=== PATIENT | female | born 1970 | race African-American/Black ===

== ENCOUNTER 2016-07-20 17:27 | Emergency (ER) | payer OTHER ==
[~2016-07-20] VITALS: Ht 170.2 cm; Wt 79.8 kg
[~2016-07-20 17:27] MED LIST: ALBUTEROL SULF8.5 GM INH; ASPIRIN EC81 MG ORAL; AZITHROMYCIN250 MG ORAL; GABAPENTIN300 MG ORAL; HYDROCHLOROTHIA25 MG ORAL; IBUPROFEN600 MG ORAL; LISINOPRIL10 MG ORAL; NORCO 5-325 TA1 EACH ORAL; NORCO1 EA ORAL; NORVASC10 MG ORAL; POLYTRIM OP SOL10 ML RIGHT EYE; SOMA350 MG PO; gabapentin
[2016-07-20 18:15] LABS: KETONES,URINE 1+ (NEGATIVE); LEUKOCYTE ESTERASE ,URINE 3+ (NEGATIVE); NITRITE,URINE POSITIVE (NEGATIVE); PH,URINE 5 (4.5-8.0); PROTEIN,URINE 3+ (NEGATIVE); UROBILINOGEN,URINE 1 MG/DL (0.0-1.0)
[2016-07-20 18:21] LABS: APPEARANCE,URINE SLIGHTLY CLOUDY
[2016-07-20 18:55] LABS: AMORPHOUS SEDIMENT,UR FEW /LPF; BACTERIA,URINE MANY /HPF; CALCIUM OXALATE CRYSTALS,UR FEW /LPF; SQUAMOUS EPITHELIAL CELL,UR FEW /LPF (NONE/OCC); WBC,URINE 20-30 /HPF (0 - 2)
[2016-07-20] MEDS ORDERED: NITROFURANTOIN100 M2 ORAL (18:55)
[2016-07-20] MEDS ORDERED: PHENAZOPYRIDIN100 MG ORAL (18:55)
[2016-07-20 19:08] VITALS: BP 130/90
[2016-07-20 19:11] VITALS: BP 130/90
--- NOTE | 2016-07-20 22:18 | Emergency Room Report ---
History of Present Illness General Chief Complaint: Female Urogenital Problems Source: Patient Present Illness HPI The patient is a 45-year-old female with a history of perimenopause presenting for lower abdominal pain and dysuria for the past 2 weeks. Pain has been increasing. It is now described as a 10 out of 10 dull ache to the mid lower abdomen. It does not radiate. She denies any flank pain. She does describe dysuria and increased urinary frequency. She has had a UTI in the past and this feels the same. She denies any other symptoms including nausea, vomiting, fever, chills, vaginal discharge, diarrhea Allergies: Coded Allergies: PENICILLINS (Verified Allergy, Unknown, 01/01/14) Patient History Past Medical History: see triage record Pertinent Family History: none Last Menstrual Period: now Now: No Reviewed Nursing Documentation: PMH: Agreed, PSxH: Agreed Nursing Documentation-PMH Hx Cardiac Problems: Yes - [place] Hx Hypertension: Yes Hx Cerebrovascular Accident: Yes Review of Systems All Other Systems: negative except mentioned in HPI Physical Exam Vital Signs Date Time Temp Pulse Resp B/P Pulse Ox O2 Delivery O2 Flow Rate FiO2 07/20/16 17:30 98.6 98 18 143/103 98 Room Air Sp02 EP Interpretation: reviewed, normal General Appearance: no apparent distress, alert, GCS 15, non-toxic Head: normocephalic, atraumatic Eyes: bilateral eye PERRL, bilateral eye normal inspection ENT: hearing grossly normal, normal pharynx, no angioedema, normal voice Neck: full range of motion, supple/symm/no masses Gastrointestinal: normal bowel sounds, soft, non-distended, no guarding, no rebound, tenderness - suprapubic Genitourinary: normal inspection, no CVA tenderness Neurologic: alert, oriented x3, responsive, motor strength/tone normal, sensory intact, speech normal Psychiatric: judgement/insight normal, memory normal, mood/affect normal, no suicidal/homicidal ideation Skin: normal color, no rash, warm/dry, well hydrated Lymphatic: no adenopathy Medical Decision Making PA Attestation Dr. Merino is my supervising physician. Patient management was discussed with my supervising physician Diagnostic Impression: Primary Impression: Urinary tract infection Qualified Codes: N39.0 - Urinary tract infection, site not specified ER Course The patient is a 45-year-old female with a history of perimenopause presenting for lower abdominal pain and dysuria Differential diagnosis considered but not limited to: UTI, vaginitis, pyelonephritis, pyelonephrosis, Differential diagnosis considered but not limited to: UTI, BV, yeast infection, pyelonephritis, PID, PE: Vitals WNL. NAD. Abdomen: Normal appearance. Non distended. No ecchymosis. Normal BS. TTP over suprapubic region only. No McBurney point tenderness. No guarding. No CVA tenderness Urinalysis is consistent with urinary tract infection The patient discharged home with a prescription for Macrobid and is given ER precautions. Laboratory Tests Test 07/20/16 17:50 Urine Color Yellow Urine Appearance Slightly cloudy Urine pH 5 (4.5-8.0) Urine Specific [place] 1.020 (1.005-1.035) Urine Protein 3+ (NEGATIVE) H Urine Glucose (UA) Negative (NEGATIVE) Urine Ketones 1+ (NEGATIVE) H Urine Occult Blood 4+ (NEGATIVE) H Urine Nitrite Positive (NEGATIVE) H Urine Bilirubin Negative (NEGATIVE) Urine Urobilinogen 1 MG/DL (0.0-1.0) H Urine Leukocyte Esterase 3+ (NEGATIVE) H Urine RBC 10-15 /HPF (0 - 2) H Urine WBC 20-30 /HPF (0 - 2) H Urine Squamous Epithelial Cells Few /LPF (NONE/OCC) Urine Calcium Oxalate Crystals Few /LPF (NONE) Urine Amorphous Sediment Few /LPF (NONE) H Urine Bacteria Many /HPF (NONE) H Urine HCG, Qualitative Negative Lab Results Impression UA consistent with UTI. Preg neg Last Vital Signs Date Time Temp Pulse Resp B/P Pulse Ox O2 Delivery O2 Flow Rate FiO2 07/20/16 19:11 98.2 90 20 130/90 100 Room Air Status: improved Disposition: HOME, SELF-CARE Condition: Improved Scripts Nitrofurantoin Monohyd/M-Cryst* (MACROBID 100 MG*) 100 Mg Capsule 100 MG ORAL EVERY 12 HOURS, #14 CAP Prov: TERZIAN,KAELYN P.A. 07/20/16 Phenazopyridine Hcl* (PYRIDIUM*) 100 Mg Tablet 100 MG ORAL THREE TIMES A DAY, #6 TAB Prov: TERZIAN,KAELYN P.A. 07/20/16 Referrals: [facility]ERR[facility] (PCP) Patient Instructions: Urinary Tract Infection Additional Instructions: I discussed my findings with the patient. All questions and concerns have been answered. Treatment and medication compliance have been addressed. I advised the patient that they need to follow up with PMD in 3-5 days. Return to ED if symptoms worsen, new symptoms arise, or if needed for any reason. Patient verbalized understanding of discharge instructions. KAELYN COLON July 20, 2016 22:18
== END 2016-07-20 19:11 | disposition home or self-care (01) ==
LOC: EMR 18:02
DX: N39.0 Urinary tract infection, site not specified (principal); I25.2 Old myocardial infarction; I10 Essential (primary) hypertension; Z86.73 Personal history of transient ischemic attack (TIA), and cerebral infarction without residual deficits; Z88.0 Allergy status to penicillin
CPT/HCPCS: 81003; 81025; 87086; 87181; 99284

== ENCOUNTER 2016-09-03 18:58 | Emergency (ER) | payer OTHER ==
[~2016-09-03] VITALS: Ht 167.6 cm; Wt 77.1 kg
[~2016-09-03 18:58] MED LIST changes: +NITROFURANTOIN100 M2 ORAL; +PHENAZOPYRIDIN100 MG ORAL
[2016-09-03 19:10] VITALS: BP 154/98
[2016-09-03] MEDS ORDERED: traMADol 50mg tab ORAL ONE (19:30)
[2016-09-03] MEDS ORDERED: CEPHALEXIN500 MG ORAL (19:59)
[2016-09-03] MEDS ORDERED: TRAMADOL HCL50 MG ORAL (19:59)
[2016-09-03] MEDS ORDERED: BACTRIM DS TAB1 EAC1 ORAL (19:59)
[2016-09-03] MEDS ORDERED: IBUPROFEN600 MG ORAL (19:59)
[2016-09-03 20:09] VITALS: BP 154/98
[2016-09-03 20:12] LABS: APPEARANCE,URINE SLIGHTLY CLOUDY; KETONES,URINE NEGATIVE (NEGATIVE); LEUKOCYTE ESTERASE ,URINE 1+ (NEGATIVE); NITRITE,URINE NEGATIVE (NEGATIVE); PH,URINE 5 (4.5-8.0); PROTEIN,URINE 1+ (NEGATIVE); UROBILINOGEN,URINE 1 MG/DL (0.0-1.0)
[2016-09-03 20:18] LABS: SQUAMOUS EPITHELIAL CELL,UR MANY /LPF (NONE/OCC)
[2016-09-03 20:19] LABS: BACTERIA,URINE FEW /HPF; MUCUS,URINE MANY /LPF (NONE/OCC)
--- NOTE | 2016-09-03 21:45 | Emergency Room Report ---
History of Present Illness General Chief Complaint: Skin Rash/Abscess Present Illness HPI The patient is a 46-year-old female presenting with left ankle pain and possible infection. Patient states that she twisted the left ankle one week prior while walking. She noticed pain but was not evaluated. She has continued to walk on the foot and the swelling has increased as well as the pain. It is now described as an 8/10 dull ache and does not radiate from the ankle. Worse with touch and walking. The patient also noticed an insect bite of the right upper chest 2 days prior. She noticed increased redness and pain described as a 5/10 dull ache and does not radiate. Worse with touch. She denies other symptoms including fever, chills, nausea, vomiting, numbness, tingling Allergies: Coded Allergies: PENICILLINS (Verified Allergy, Unknown, 01/01/14) Patient History Past Medical History: see triage record Pertinent Family History: none Now: No Reviewed Nursing Documentation: PMH: Agreed, PSxH: Agreed Nursing Documentation-PMH Hx Cardiac Problems: Yes - [place] Hx Hypertension: Yes Hx Cerebrovascular Accident: Yes Review of Systems All Other Systems: negative except mentioned in HPI Physical Exam Vital Signs Date Time Temp Pulse Resp B/P Pulse Ox O2 Delivery O2 Flow Rate FiO2 09/03/16 19:00 98.8 94 20 154/98 98 Room Air Sp02 EP Interpretation: reviewed, normal General Appearance: no apparent distress, alert, GCS 15, non-toxic Head: normocephalic, atraumatic Eyes: bilateral eye PERRL, bilateral eye normal inspection ENT: hearing grossly normal, normal pharynx, no angioedema, normal voice Neck: full range of motion, supple/symm/no masses Musculoskeletal: back normal, normal range of motion, swelling, tender - TTP over the L lateral ankle with swelling Neurologic: alert, oriented x3, responsive, motor strength/tone normal, sensory intact, speech normal Psychiatric: judgement/insight normal, memory normal, mood/affect normal, no suicidal/homicidal ideation Skin: other - 3cm in diameter erythema to R upper lateral chest with central elevation. TTP. Hot to the touch. Lymphatic: no adenopathy Medical Decision Making PA Attestation Dr. Chambers is my supervising physician. Patient management was discussed with my supervising physician Diagnostic Impression: Primary Impression: Cellulitis Qualified Codes: L03.90 - Cellulitis, unspecified Additional Impression: Left ankle sprain Qualified Codes: S93.402A - Sprain of unspecified ligament of left ankle, initial encounter ER Course The patient is a 46-year-old female presenting with left ankle pain and possible infection. Ddx considered include but not limited to sprain/strain, fracture, contusion Ddx considered include but not limited to insect bite, contact dermatitis, eczema, cellulitis Physical exam: Afebrile. No apparent distress Left ankle: There is tenderness to palpation and edema over the left lateral malleolus. Limited active range of motion. Sensation intact to light touch. Cellulitis noted of the R upper lateral chest. X-ray of the left ankle is unremarkable Left ankle placed in TIANA wrap and the patient is provided crutches. ER precautions are given. Patient given prescription for pain medication and antibiotics and will follow up with primary care physician. Laboratory Tests Test 09/03/16 19:30 Urine Color Yellow Urine Appearance Slightly cloudy Urine pH 5 (4.5-8.0) Urine Specific [place] 1.025 (1.005-1.035) Urine Protein 1+ (NEGATIVE) H Urine Glucose (UA) Negative (NEGATIVE) Urine Ketones Negative (NEGATIVE) Urine Occult Blood Negative (NEGATIVE) Urine Nitrite Negative (NEGATIVE) Urine Bilirubin Negative (NEGATIVE) Urine Urobilinogen 1 MG/DL (0.0-1.0) H Urine Leukocyte Esterase 1+ (NEGATIVE) H Urine RBC 2-4 /HPF (0 - 2) H Urine WBC 5-10 /HPF (0 - 2) H Urine Squamous Epithelial Cells Many /LPF (NONE/OCC) H Urine Bacteria Few /HPF (NONE) Urine Mucus Many /LPF (NONE/OCC) H Lab Results Impression negative nitrite. WBC and bacteria noted but also many squamous cells Other X-Ray Diagnostic Results # of Views/Limited Vs Complete: 3 View Interpretation: no fractures, no dislocation, other - + STS Indication: Pain Impression: No acute disease Date Electronically Signed: Sep 03, 2016 Time Electronically Signed: 21:41 Interpreting ER Physician: Dr. Trish OLIVER Scribe Text I am acting as scribe for my supervising physician. My supervising physician's interpretation of the L ankle xrays are there are no fractures, dislocations or soft tissue swelling. Last Vital Signs Date Time Temp Pulse Resp B/P Pulse Ox O2 Delivery O2 Flow Rate FiO2 09/03/16 20:09 98.8 94 20 154/98 98 Room Air Status: improved Disposition: HOME, SELF-CARE Condition: Improved Scripts Trimethoprim/Sulfamethoxazole 160/800* (BACTRIM DS TABLET*) 1 Each Tablet 1 TAB ORAL TWICE A DAY, #14 TAB Prov: KAELYN COLON P.A. 09/03/16 Cephalexin* (KEFLEX*) 500 Mg Capsule 500 MG ORAL EVERY 6 HOURS, #28 CAP Prov: JESSICAZIANKAELYN P.A. 09/03/16 Tramadol Hcl* (ULTRAM*) 50 Mg Tablet 50 MG ORAL Q6H Y for For Pain, #8 TAB 0 Refills Prov: KAELYN COLON P.A. 09/03/16 Ibuprofen* (MOTRIN*) 600 Mg Tablet 600 MG ORAL Q8H Y for For Pain, #30 TAB 0 Refills Prov: KAELYN COLON P.A. 09/03/16 Patient Instructions: Cellulitis, Ankle Sprain Additional Instructions: I discussed my findings with the patient. All questions and concerns have been answered. Treatment and medication compliance have been addressed. I advised the patient that they need to follow up with PMD in 3-5 days. Return to ED if symptoms worsen, new symptoms arise, or if needed for any reason. Patient verbalized understanding of discharge instructions. KAELYN COLON Sep 03, 2016 21:45
--- NOTE | 2016-09-04 10:08 | Diagnostic Imaging Report ---
Indication: Left ankle pain Technique: XRAY ANKLE MIN 3VWS LEFT Comparison: None Findings: There is no acute fracture or dislocation. Prominent soft tissue swelling of the left ankle is noted. Bone mineralization is normal. Impression: No acute osseous abnormality. Prominent soft tissue swelling of the ankle and clinical correlation recommended.
== END 2016-09-03 20:09 | disposition home or self-care (01) ==
LOC: EMR 19:23
DX: L03.116 Cellulitis of left lower limb (principal); S93.402A Sprain of unspecified ligament of left ankle, initial encounter; X50.1XXA Overexertion from prolonged static or awkward postures, initial encounter; Y93.01 Activity, walking, marching and hiking; Y92.89 Other specified places as the place of occurrence of the external cause; I10 Essential (primary) hypertension; I25.2 Old myocardial infarction; Z86.73 Personal history of transient ischemic attack (TIA), and cerebral infarction without residual deficits; Z88.0 Allergy status to penicillin
CPT/HCPCS: 29540; 81003; 99284

== ENCOUNTER 2017-06-29 14:56 | Emergency (ER) | payer OTHER ==
[2017-06-29] VITALS (8 sets, daily range): BP systolic 142–163; BP diastolic 88–132
[~2017-06-29] VITALS: Ht 170.2 cm; Wt 72.6 kg
[~2017-06-29 14:56] MED LIST changes: +BACTRIM DS TAB1 EAC1 ORAL; +CEPHALEXIN500 MG ORAL; +TRAMADOL HCL50 MG ORAL
--- NOTE | 2017-06-29 15:24 | Emergency Room Report ---
History of Present Illness General Chief Complaint: General Complaint Source: Patient, Medical Record (Neo Mcpherson) Present Illness HPI 46 yo female patient presents to ER complaining of cough and PENA after doing drugs. Reports history of benzocaine and cocaine 3 days ago. Reports hx of using cocaine. Reports "they flooded the streets with benzocaine" 2 weeks ago and she has been using it since that time. Reports been sleeping off and on for the past 3 days, has not used drugs since that time, states " I think I'm going through withdrawals". Denies suicidal or homicidal ideation. Reports hx schizophrenia and bipolar disease; report takes Latuda and Trazodone for symptoms. Reports PENA and cough during this time. Reports phlegm in cough. Reports generalized PENA, denies loss of vision or vision changes. Reports generalized weakness. Denies fever, chest pain, SOB, abdominal pain. Reports hx of HTN, reports takes Norvasc; states did not take medication today. (Neo Mcpherson) Allergies: Coded Allergies: PENICILLINS (Verified Allergy, Unknown, 01/01/14) Patient History Past Medical History: see triage record Last Menstrual Period: 3 yrs ago Reviewed Nursing Documentation: PMH: Agreed; PSxH: Agreed (Neo Mcpherson) Nursing Documentation-PMH Past Medical History: No History, Except For Hx Cardiac Problems: Yes - [place] Hx Hypertension: Yes Hx Cerebrovascular Accident: Yes (Neo Mcpherson) Review of Systems All Other Systems: negative except mentioned in HPI (Neo Mcpherson) Physical Exam Vital Signs Date Time Temp Pulse Resp B/P (MAP) Pulse Ox O2 Delivery O2 Flow Rate FiO2 06/29/17 15:13 97.5 61 18 151/99 97 Room Air 97.5 Sp02 EP Interpretation: reviewed, normal General Appearance: well appearing, no apparent distress, alert, GCS 15, non- toxic Head: normocephalic, atraumatic Eyes: bilateral eye normal inspection, bilateral eye PERRL ENT: hearing grossly normal, normal pharynx, no angioedema, normal voice, uvula midline, moist mucus membranes Neck: full range of motion Respiratory: lungs clear, normal breath sounds, no rhonchi, no respiratory distress, no accessory muscle use, no wheezing, speaking full sentences Cardiovascular #1: regular rate, rhythm, no edema Gastrointestinal: non tender, soft, no mass, non-distended, no guarding, no rebound Musculoskeletal: normal inspection Neurologic: alert, oriented x3, responsive, motor strength/tone normal, sensory intact Psychiatric: mood/affect normal Skin: no rash Lymphatic: no adenopathy (Neo Mcpherson) Medical Decision Making PA Attestation Dr. Parish is my supervising Physician whom patient management has been discussed with. (Neo Mcpherson) Diagnostic Impression: Primary Impression: Generalized weakness Additional Impression: Abnormal EKG ER Course Pt. presents to the ED c/o cough and drug withdrawal. Ddx considered but are not limited to drug use, drug withdrawal, URI, viral syndrome, pneumonia, [place], PE, dissection. Concern for dissection due to hx of drug use. Vital signs: are WNL, pt. is afebrile Ordered labs and medication. CBC, CMP, Urine drug screen, Acetaminophen level, Salicylate level, serum alcohol, EKG, chest xray, Troponin, and medication. ER COURSE: Patient reports has not taken HTN medication today, will provide in ER. EKG shows T-wave inversions in II, III, avF, and V4-V6, concern for possible PE. Discuss with Dr. Parish, will order CTA to rule out PE. Order CTA chest and nitro. CBC and CMP unremarkable no elevation o WBC or LFTS Troponin negative Urine drug screen positive for cocaine and marijuana. CXR negative for acute disease, similar to xray from previous visit. No elevation in serum alcohol, acetaminophen, or salicylate. CTA chest shows no PE. Consult with Dr. Parish. Patient will be admitted for generalized weakness and abnormal EKG. Patient to be transferred to [facility] to Dr. Brooks. Labs Test 06/29/17 15:30 06/29/17 16:05 White Blood Count 5.6 K/UL (4.8-10.8) Red Blood Count 5.59 M/UL (4.20-5.40) Hemoglobin 16.2 G/DL (12.0-16.0) Hematocrit 48.5 % (37.0-47.0) Mean Corpuscular Volume 87 FL (80-99) Mean Corpuscular Hemoglobin 29.0 PG (27.0-31.0) Mean Corpuscular Hemoglobin Concent 33.5 G/DL (32.0-36.0) Red Cell Distribution Width 12.6 % (11.6-14.8) Platelet Count 348 K/UL (150-450) Mean Platelet Volume 6.1 FL (6.5-10.1) Neutrophils (%) (Auto) 60.2 % (45.0-75.0) Lymphocytes (%) (Auto) 29.4 % (20.0-45.0) Monocytes (%) (Auto) 6.7 % (1.0-10.0) Eosinophils (%) (Auto) 2.6 % (0.0-3.0) Basophils (%) (Auto) 1.2 % (0.0-2.0) Sodium Level 139 MMOL/L (136-145) Potassium Level 4.5 MMOL/L (3.5-5.1) Chloride Level 105 MMOL/L (98-107) Carbon Dioxide Level 27 MMOL/L (21-32) Anion Gap 8 mmol/L (5-15) Blood Urea Nitrogen 18 mg/dL (7-18) Creatinine 1.2 MG/DL (0.55-1.30) Estimat Glomerular Filtration Rate 58.1 mL/min (>60) Glucose Level 102 MG/DL (74-106) Calcium Level 9.6 MG/DL (8.5-10.1) Total Bilirubin 0.4 MG/DL (0.2-1.0) Aspartate Amino Transf (AST/SGOT) 15 U/L (15-37) Alanine Aminotransferase (ALT/SGPT) 17 U/L (12-78) Alkaline Phosphatase 81 U/L (46-116) Troponin I 0.000 ng/mL (0.000-0.056) Total Protein 7.9 G/DL (6.4-8.2) Albumin 3.8 G/DL (3.4-5.0) Globulin 4.1 g/dL Albumin/Globulin Ratio 0.9 (1.0-2.7) Salicylates Level 1.1 ug/mL (2.8-20) Acetaminophen Level < 2 MCG/ML (10-30) Serum Alcohol < 3 mg/dL Urine Opiates Screen Negative (NEGATIVE) Urine Barbiturates Screen Negative (NEGATIVE) Phencyclidine (PCP) Screen Negative (NEGATIVE) Urine Amphetamines Screen Negative (NEGATIVE) Urine Benzodiazepines Screen Negative (NEGATIVE) Urine Cocaine Screen Positive (NEGATIVE) Urine Marijuana (THC) Screen Positive (NEGATIVE) (Neo Mcpherson) ER Course The patient was discussed with Dr. Brooks who agreed to accept the patient for transfer for continuity of care due to capitated physician. The patient was given aspirin in the emergency department. CTA of the chest read by radiology showed no evidence of dissection or pulmonary embolism. Initial troponin was negative Labs Test 06/29/17 15:30 06/29/17 16:05 White Blood Count 5.6 K/UL (4.8-10.8) Red Blood Count 5.59 M/UL (4.20-5.40) Hemoglobin 16.2 G/DL (12.0-16.0) Hematocrit 48.5 % (37.0-47.0) Mean Corpuscular Volume 87 FL (80-99) Mean Corpuscular Hemoglobin 29.0 PG (27.0-31.0) Mean Corpuscular Hemoglobin Concent 33.5 G/DL (32.0-36.0) Red Cell Distribution Width 12.6 % (11.6-14.8) Platelet Count 348 K/UL (150-450) Mean Platelet Volume 6.1 FL (6.5-10.1) Neutrophils (%) (Auto) 60.2 % (45.0-75.0) Lymphocytes (%) (Auto) 29.4 % (20.0-45.0) Monocytes (%) (Auto) 6.7 % (1.0-10.0) Eosinophils (%) (Auto) 2.6 % (0.0-3.0) Basophils (%) (Auto) 1.2 % (0.0-2.0) Sodium Level 139 MMOL/L (136-145) Potassium Level 4.5 MMOL/L (3.5-5.1) Chloride Level 105 MMOL/L (98-107) Carbon Dioxide Level 27 MMOL/L (21-32) Anion Gap 8 mmol/L (5-15) Blood Urea Nitrogen 18 mg/dL (7-18) Creatinine 1.2 MG/DL (0.55-1.30) Estimat Glomerular Filtration Rate 58.1 mL/min (>60) Glucose Level 102 MG/DL (74-106) Calcium Level 9.6 MG/DL (8.5-10.1) Total Bilirubin 0.4 MG/DL (0.2-1.0) Aspartate Amino Transf (AST/SGOT) 15 U/L (15-37) Alanine Aminotransferase (ALT/SGPT) 17 U/L (12-78) Alkaline Phosphatase 81 U/L (46-116) Troponin I 0.000 ng/mL (0.000-0.056) Total Protein 7.9 G/DL (6.4-8.2) Albumin 3.8 G/DL (3.4-5.0) Globulin 4.1 g/dL Albumin/Globulin Ratio 0.9 (1.0-2.7) Salicylates Level 1.1 ug/mL (2.8-20) Acetaminophen Level < 2 MCG/ML (10-30) Serum Alcohol < 3 mg/dL Urine Opiates Screen Negative (NEGATIVE) Urine Barbiturates Screen Negative (NEGATIVE) Phencyclidine (PCP) Screen Negative (NEGATIVE) Urine Amphetamines Screen Negative (NEGATIVE) Urine Benzodiazepines Screen Negative (NEGATIVE) Urine Cocaine Screen Positive (NEGATIVE) Urine Marijuana (THC) Screen Positive (NEGATIVE) (Sinan Parish) EKG Diagnostic Results Rate: bradycardiac Rhythm: NSR ST Segments: no acute changes Other Impression short OH T-wave abnormality, consider lateral ischemia T wave inversions in leads II, III, aVF, and V4-V6 abnormal EKG (Neo Mcpherson P.A.) Rhythm Strip Diag. Results EP Interpretation: yes Rate: 49 Rhythm: NSR, no PVC's, no ectopy PA Scribe Text Darius Mcpherson PA-C (Neo Mcpherson P.A.) Chest X-Ray Diagnostic Results Chest X-Ray Diagnostic Results : Chest X-Ray Ordered: Yes # of Views/Limited/Complete: 1 View Indication: Chest Pain EP Interpretation: Yes PA Xray: Interpretation reviewed, by supervising MD, and agrees with findings. Interpretation: no consolidation, no effusion, no pneumothorax, no acute cardiopulmonary disease Impression: No acute disease PA Scribe Text Darius Mcpherson PA-C (Neo Mcpherson P.A.) CT/MRI/US Diagnostic Results CT/MRI/US Diagnostic Results : Imaging Test Ordered: CTA chest Impression [facility] No PE or aortic dissection. Bilateral scattered infiltrates. Small nodular lung densities which may be infectious/inflammatory, chronic, or other etiology, followup per final report. (Neo Mcpherson) Last Vital Signs Date Time Temp Pulse Resp B/P (MAP) Pulse Ox O2 Delivery O2 Flow Rate FiO2 06/29/17 15:13 97.5 61 18 151/99 97 Room Air 97.5 (Neo Mcpherson) Status: improved (Sinan Parish) Disposition: XFER SHT-TRM HOSP Condition: Serious Neo Mcpherson Jun 29, 2017 15:24 Sinan Parish Jun 29, 2017 19:09
[2017-06-29] MEDS ORDERED: Acetaminophen 500mg (ES) tab ORAL ONE (15:45)
[2017-06-29 16:00] LABS: BASOPHILS % (AUTO) 1.2 % (0.0-2.0); EOSINOPHILS % (AUTO) 2.6 % (0.0-3.0); HEMATOCRIT 48.5 % (37.0-47.0); HEMOGLOBIN 16.2 G/DL (12.0-16.0); LYMPHOCYTES % (AUTO) 29.4 % (20.0-45.0); MEAN CORPUSCULAR VOLUME 87 FL (80-99); MONOCYTES % (AUTO) 6.7 % (1.0-10.0); NEUTROPHILS % (AUTO) 60.2 % (45.0-75.0); PLATELET COUNT 348 K/UL (150-450); RED BLOOD COUNT 5.59 M/UL (4.20-5.40); RED CELL DISTRIBUTION WIDTH 12.6 % (11.6-14.8); WHITE BLOOD COUNT 5.6 K/UL (4.8-10.8)
--- NOTE | 2017-06-29 16:08 | Diagnostic Imaging Report ---
Indication: Cough Comparison: 08/06/2012 A single view chest radiograph was obtained. Findings: No definite infiltrate or pulmonary vascular congestion identified. The heart is normal in size. The aorta is mildly enlarged consistent with atherosclerotic vascular disease. The bones are unremarkable. No significant change appreciated. Impression: No acute disease
[2017-06-29 16:12] LABS: ANION GAP 8 mmol/L (5-15); BLOOD UREA NITROGEN 18 mg/dL (7-18); CALCIUM 9.6 MG/DL (8.5-10.1); CARBON DIOXIDE 27 MMOL/L (21-32); CHLORIDE 105 MMOL/L (98-107); CREATININE 1.2 MG/DL (0.55-1.30); POTASSIUM 4.5 MMOL/L (3.5-5.1); SODIUM 139 MMOL/L (136-145)
[2017-06-29 16:16] LABS: ALANINE AMINOTRANSFERASE 17 U/L (12-78); ALBUMIN 3.8 G/DL (3.4-5.0); ALBUMIN/GLOBULIN RATIO 0.9 (1.0-2.7); ALKALINE PHOSPHATASE 81 U/L (46-116); ASPARTATE AMINO TRANSFERASE 15 U/L (15-37); BILIRUBIN,TOTAL 0.4 MG/DL (0.2-1.0)
[2017-06-29] MEDS ORDERED: Nitroglycerin Subl 0.4mg tab SL PRN (17:15)
--- NOTE | 2017-06-30 09:04 | Diagnostic Imaging Report ---
ndication: Chest pain Technique: IV administration nonionic contrast. Spiral acquisitions obtained from the lung bases to the lung apices. Multiplanar and 3-D reconstructions were generated. Total dose length product 623.56 mGycm. CTDIvol(s) 19.12 mGy. Dose reduction achieved using automated exposure control Comparison: none Findings: Pulmonary arteries are well opacified. No intraluminal filling defects or other findings to suggest acute pulmonary embolus. The ascending thoracic aorta is mildly ectatic, but no evidence of thoracic aortic aneurysm or dissection. Normal caliber pulmonary arteries. No evidence of right ventricular dilatation. Normal heart size. The lungs demonstrate groundglass, hazy, nodular and patchy opacities in the inferior bilateral upper lobes as well as in the right middle lobe. Interstitial markings do not appear thickened that appear unusually abundant. No dense consolidation, effusions, or masses demonstrated. No mediastinal or hilar mass or adenopathy. No axillary or chest wall mass or adenopathy. The thyroid is unremarkable. The esophagus is unremarkable. The included upper abdominal anatomy is unremarkable. Impression: Negative for evidence of acute pulmonary embolus or other acute thoracic vascular pathology. Bilateral groundglass, hazy, patchy upper lobe and right middle lobe opacities, as well as reticular interstitial prominence. Appearance is nonspecific but raises concern for acute inflammatory/infectious process This agrees with the preliminary interpretation provided overnight by [facility] teleradiology service. The CT scanner at [facility] is accredited by the [employer] and the scans are performed using protocols designed to limit radiation exposure to as low as reasonably achievable to attain images of sufficient resolution adequate for diagnostic evaluation.
--- NOTE | 2017-06-30 14:56 | Cardiology Report ---
APPROVED REPORT EKG Measurement Heart [id number] FL [id number] Sinus bradycardia with sinus arrhythmia with short FL T wave abnormality, consider lateral ischemia Abnormal ECG
== END 2017-06-29 23:40 | disposition short-term general hospital (02) ==
LOC: EMR 16:45
DX: R53.1 Weakness (principal); R94.31 Abnormal electrocardiogram [ECG] [EKG]; R51 Headache; R05 Cough; F14.90 Cocaine use, unspecified, uncomplicated; F19.90 Other psychoactive substance use, unspecified, uncomplicated; I10 Essential (primary) hypertension; I25.2 Old myocardial infarction; Z86.73 Personal history of transient ischemic attack (TIA), and cerebral infarction without residual deficits; Z88.0 Allergy status to penicillin
CPT/HCPCS: 36415; 71045; 71275; 80053; 80307; 80329; 84484; 85025; 93005; 99285; Q9967

== ENCOUNTER 2017-07-11 20:55 | Emergency (ER) | payer OTHER ==
[~2017-07-11] VITALS: Ht 170.2 cm; Wt 76.7 kg
[2017-07-11 21:10] VITALS: BP 133/88
[2017-07-11 21:28] LABS: BASOPHILS % (AUTO) 1.3 % (0.0-2.0); EOSINOPHILS % (AUTO) 0.8 % (0.0-3.0); HEMATOCRIT 44.1 % (37.0-47.0); HEMOGLOBIN 14.5 G/DL (12.0-16.0); LYMPHOCYTES % (AUTO) 28.5 % (20.0-45.0); MEAN CORPUSCULAR VOLUME 86 FL (80-99); MONOCYTES % (AUTO) 6.4 % (1.0-10.0); NEUTROPHILS % (AUTO) 63.1 % (45.0-75.0); PLATELET COUNT 310 K/UL (150-450); RED BLOOD COUNT 5.13 M/UL (4.20-5.40); RED CELL DISTRIBUTION WIDTH 12.9 % (11.6-14.8); WHITE BLOOD COUNT 12.5 K/UL (4.8-10.8)
[2017-07-11 21:44] LABS: ANION GAP 6 mmol/L (5-15); BLOOD UREA NITROGEN 24 mg/dL (7-18); CALCIUM 9.1 MG/DL (8.5-10.1); CARBON DIOXIDE 30 MMOL/L (21-32); CHLORIDE 104 MMOL/L (98-107); CREATININE 1.2 MG/DL (0.55-1.30); POTASSIUM 4.4 MMOL/L (3.5-5.1); SODIUM 140 MMOL/L (136-145)
[2017-07-11 21:57] LABS: ALANINE AMINOTRANSFERASE 17 U/L (12-78); ALBUMIN 3.6 G/DL (3.4-5.0); ALBUMIN/GLOBULIN RATIO 0.8 (1.0-2.7); ALKALINE PHOSPHATASE 83 U/L (46-116); ASPARTATE AMINO TRANSFERASE < 5 U/L (15-37); BILIRUBIN,TOTAL 0.3 MG/DL (0.2-1.0); CKMB < 0.5 NG/ML (0.0-3.6); CREATINE KINASE 74 U/L (26-308)
[2017-07-11 22:10] VITALS: BP 139/88
[2017-07-11 23:00] VITALS: BP 139/88
--- NOTE | 2017-07-12 02:50 | Emergency Room Report ---
History of Present Illness General Chief Complaint: Chest Pain Source: Patient Present Illness HPI Patient presents with complaints of chest pain midsternal Denies any pleurisy Denies any shortness of breath Patient reports the pain is 5 out of 10 heaviness and sharp at times Pain started several days ago Patient also reports that she hit her left foot 4 days ago Was not having any pain at that time however yesterday started having pain in the left foot Allergies: Coded Allergies: PENICILLINS (Verified Allergy, Unknown, 01/01/14) Patient History Past Medical History: see triage record Pertinent Family History: none Reviewed Nursing Documentation: PMH: Agreed; PSxH: Agreed Nursing Documentation-PMH Hx Cardiac Problems: Yes - [place] 06/28/17 Hx Hypertension: Yes Hx Cerebrovascular Accident: Yes - 2011 Review of Systems All Other Systems: negative except mentioned in HPI Physical Exam Vital Signs Date Time Temp Pulse Resp B/P (MAP) Pulse Ox O2 Delivery O2 Flow Rate FiO2 07/11/17 20:59 98.0 70 12 166/95 100 Room Air 98.1 Sp02 EP Interpretation: reviewed, normal General Appearance: well appearing, no apparent distress Head: normocephalic, atraumatic Eyes: bilateral eye PERRL, bilateral eye EOMI ENT: hearing grossly normal, normal pharynx, TMs + canals normal, uvula midline Neck: full range of motion, supple, no meningismus, no bony tend Respiratory: lungs clear, normal breath sounds, no rhonchi, no respiratory distress, no retraction, no accessory muscle use Cardiovascular #1: normal peripheral pulses, regular rate, rhythm, no edema, no gallop, no JVD, no murmur Gastrointestinal: normal bowel sounds, non tender, soft, no mass, no organomegaly, non-distended, no guarding, no hernia, no pulsatile mass, no rebound Genitourinary: no CVA tenderness Musculoskeletal: normal inspection Neurologic: oriented x3, responsive, 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, motor strength/ tone normal, sensory intact Psychiatric: mood/affect normal Skin: normal color, no rash, warm/dry, palpation normal Lymphatic: normal inspection, no adenopathy Medical Decision Making Diagnostic Impression: Primary Impression: Chest pain ER Course Patient is a fairly complex patient with multiple differential to consideration including but not limited to cardiac cardiopulmonary and vascular emergencies Patient's EKG compares well to recent EKG Patient has had recent hospitalization as well without any further intervention Blood work also within normal limits and patient stable for close outpatient follow-up Labs Test 07/11/17 21:00 White Blood Count 12.5 K/UL (4.8-10.8) Red Blood Count 5.13 M/UL (4.20-5.40) Hemoglobin 14.5 G/DL (12.0-16.0) Hematocrit 44.1 % (37.0-47.0) Mean Corpuscular Volume 86 FL (80-99) Mean Corpuscular Hemoglobin 28.3 PG (27.0-31.0) Mean Corpuscular Hemoglobin Concent 32.9 G/DL (32.0-36.0) Red Cell Distribution Width 12.9 % (11.6-14.8) Platelet Count 310 K/UL (150-450) Mean Platelet Volume 5.5 FL (6.5-10.1) Neutrophils (%) (Auto) 63.1 % (45.0-75.0) Lymphocytes (%) (Auto) 28.5 % (20.0-45.0) Monocytes (%) (Auto) 6.4 % (1.0-10.0) Eosinophils (%) (Auto) 0.8 % (0.0-3.0) Basophils (%) (Auto) 1.3 % (0.0-2.0) Sodium Level 140 MMOL/L (136-145) Potassium Level 4.4 MMOL/L (3.5-5.1) Chloride Level 104 MMOL/L (98-107) Carbon Dioxide Level 30 MMOL/L (21-32) Anion Gap 6 mmol/L (5-15) Blood Urea Nitrogen 24 mg/dL (7-18) Creatinine 1.2 MG/DL (0.55-1.30) Estimat Glomerular Filtration Rate 58.1 mL/min (>60) Glucose Level 97 MG/DL (74-106) Calcium Level 9.1 MG/DL (8.5-10.1) Total Bilirubin 0.3 MG/DL (0.2-1.0) Aspartate Amino Transf (AST/SGOT) < 5 U/L (15-37) Alanine Aminotransferase (ALT/SGPT) 17 U/L (12-78) Alkaline Phosphatase 83 U/L (46-116) Total Creatine Kinase 74 U/L (26-308) Creatine Kinase MB < 0.5 NG/ML (0.0-3.6) Creatine Kinase MB Relative Index 0.6 Troponin I 0.000 ng/mL (0.000-0.056) Total Protein 8.0 G/DL (6.4-8.2) Albumin 3.6 G/DL (3.4-5.0) Globulin 4.4 g/dL Albumin/Globulin Ratio 0.8 (1.0-2.7) Lipase 233 U/L (73-393) Urine Opiates Screen Negative (NEGATIVE) Urine Barbiturates Screen Negative (NEGATIVE) Phencyclidine (PCP) Screen Negative (NEGATIVE) Urine Amphetamines Screen Negative (NEGATIVE) Urine Benzodiazepines Screen Negative (NEGATIVE) Urine Cocaine Screen Negative (NEGATIVE) Urine Marijuana (THC) Screen Negative (NEGATIVE) EKG Diagnostic Results Rate: normal Rhythm: NSR ST Segments: other - Nonspecific T-wave changes similar to pvious Rhythm Strip Diag. Results EP Interpretation: yes Rate: 77 Rhythm: NSR, no PVC's, no ectopy Chest X-Ray Diagnostic Results Chest X-Ray Diagnostic Results : Chest X-Ray Ordered: Yes # of Views/Limited/Complete: 1 View Indication: Chest Pain EP Interpretation: Yes Interpretation: no consolidation, no effusion, no pneumothorax Impression: No acute disease Electronically Signed by: Ruth Wallace DO Last Vital Signs Date Time Temp Pulse Resp B/P (MAP) Pulse Ox O2 Delivery O2 Flow Rate FiO2 18 23:00 98.2 74 12 139/88 98 Room Air 98.2 Status: improved Disposition: HOME, SELF-CARE Condition: Improved Referrals: [facility],REFERR[facility] (PCP) Patient Instructions: Nonspecific Chest Pain Additional Instructions: Patient is provided with the discharge instructions notified to follow up with primary doctor in the next 2-3 days otherwise return to the er with any worsening symptoms. Please note that this report is being documented using [employer] technology. This can lead to erroneous entry secondary to incorrect interpretation by the dictating instrument. Ruth Wallace DO Jul 12, 2017 02:50
--- NOTE | 2017-07-12 09:14 | Diagnostic Imaging Report ---
Indication: Chest pain Technique: XRAY Chest 1v Comparison: Chest radiograph and CT angiogram of the chest 06/29/2017 Findings: Heart size and mediastinal contours are stable. The previously described subtle groundglass opacities noted on prior CT are not definitively seen radiographically. There is no definite new focal airspace consolidation. No pleural effusion or pneumothorax. No acute osseous abnormality seen. IMPRESSION: No new focal consolidation, pleural effusion or pneumothorax. Previously described subtle ground glass opacities noted on CT angiogram of the chest 06/29/2017 not definitively seen radiographically. Correlate clinically. Heart size and mediastinal contours stable.
--- NOTE | 2017-07-12 14:59 | Cardiology Report ---
APPROVED REPORT EKG Measurement Heart [id number] Normal sinus rhythm Moderate voltage criteria for LVH, may be normal variant Borderline ECG
== END 2017-07-11 23:00 | disposition home or self-care (01) ==
LOC: EMR 21:40
DX: R07.9 Chest pain, unspecified (principal); I25.2 Old myocardial infarction; I10 Essential (primary) hypertension; Z86.73 Personal history of transient ischemic attack (TIA), and cerebral infarction without residual deficits; Z88.0 Allergy status to penicillin
CPT/HCPCS: 36415; 71045; 80053; 80307; 82550; 82553; 83690; 84484; 85025; 93005; 99283

== ENCOUNTER 2018-11-05 19:49 | Emergency (ER) | payer OTHER ==
[~2018-11-05] VITALS: Ht 170.2 cm; Wt 74.8 kg
[2018-11-05 20:10] VITALS: BP 156/117
--- NOTE | 2018-11-05 20:10 | NUR ---
ED Nurse Note: caregiver sahara at bedside
--- NOTE | 2018-11-05 20:20 | NUR ---
ED Nurse Note: pt came to ed c/o right flank pain x 2-3 days with hemturia. pt states that theres "bubbles" when she urinates.
[2018-11-05] MEDS ORDERED: Isovue-300 100ml vial INJ PRN (20:30)
[2018-11-05] MEDS ORDERED: Ketorolac 30mg Inj IV ONE (20:30)
--- NOTE | 2018-11-05 20:37 | Emergency Room Report ---
History of Present Illness General Chief Complaint: Abdominal Pain Source: Patient, Medical Record Present Illness HPI Disclaimer: Please note that this report is being documented using DRAGON technology. This can lead to erroneous entry secondary to incorrect interpretation by the dictating instrument. HPI: 48-year-old female with a history of polysubstance abuse, schizophrenia, nephrolithiasis presents for evaluation of right-sided abdominal pain. Symptoms have been present for several weeks though she states they have acutely masturbated over the past 3 days. She notes an aching and sharp stabbing right-sided pain from the upper to the right lower quadrant. She states she passed a stone in the hospital approximately 6 weeks ago. She was seen at urgent care 2 weeks ago with similar complaints but left before full evaluation. Denies fever, chills, chest pain, shortness of breath. She does note a cough with green phlegm over the past 3 days. Intermittent nausea and vomiting. One episode of hematuria last week. Notes dysuria and pelvic pain. Last cocaine use was yesterday. She is hearing voices but she denies any SI/ HI. She is no longer taking her psychiatric medications for approximately 1 week. States she stopped taking them because they were making her feel lethargic. PMH: Polysubstance abuse, scheduled for hernia, hypertension, kidney stones PSH: Laparoscopy for ectopic Allergies: Penicillin Social Hx: Regular crack cocaine use, occasional tobacco use, occasional alcohol use Allergies: Coded Allergies: PENICILLINS (Verified Allergy, Unknown, 01/01/14) Patient History Now: No - NA Nursing Documentation-PMH Past Medical History: No History, Except For Hx Cardiac Problems: Yes - [place] 06/28/17 Hx Hypertension: Yes Hx Cerebrovascular Accident: Yes - 2011 Review of Systems All Other Systems: negative except mentioned in HPI Physical Exam Vital Signs Date Time Temp Pulse Resp B/P (MAP) Pulse Ox O2 Delivery O2 Flow Rate FiO2 11/05/18 20:09 98.2 77 18 156/117 (130) 94 Room Air General: Awake and alert, no acute distress HEENT: NC/AT. EOMI. Cardiovascular: RRR. S1 and S2 normal. No murmur appreciated Resp: Normal work of breathing. No cough, wheezing or crackles appreciated Abdomen: Abdomen is soft, nondistended. Tenderness palpation in the epigastrium , right upper quadrant, right lower quadrant, suprapubic region. There is rebound tenderness in the right lower quadrant. Aviles sign is negative. Rovsing's sign is positive Skin: Intact. No abrasions, laceration or rash over the exposed skin MSK: Normal tone and bulk. Moving all extremities. No obvious deformity. Neuro: Awake and alert. Mentating appropriately. Back/Spine: There is CVA tenderness on the right, negative on the left Medical Decision Making Diagnostic Impression: Primary Impression: Abdominal pain Additional Impressions: Diverticulosis of colon without diverticulitis Constipation ER Course 48-year-old female history of polysubstance use, schizophrenia, hypertension presents for evaluation of abdominal pain. Differential includes but is not limited to urinary tract infection, pyelonephritis, nephrolithiasis, cholecystitis, biliary colic, pancreatitis, gastritis, GERD, appendicitis. Will start metabolic work-up with labs, give IV fluids, antiemetics, pain medications and send patient for CT scan of the abdomen and pelvis with and without IV to evaluate for nephrolithiasis versus appendicitis. Laboratory Tests Test 11/05/18 20:23 11/05/18 20:45 Urine Color Pale yellow Urine Appearance Clear Urine pH 6 (4.5-8.0) Urine Specific Weiner 1.020 (1.005-1.035) Urine Protein 1+ (NEGATIVE) H Urine Glucose (UA) Negative (NEGATIVE) Urine Ketones Negative (NEGATIVE) Urine Blood Negative (NEGATIVE) Urine Nitrite Negative (NEGATIVE) Urine Bilirubin Negative (NEGATIVE) Urine Urobilinogen Normal MG/DL (0.0-1.0) Urine Leukocyte Esterase Negative (NEGATIVE) Urine RBC 2-4 /HPF (0 - 2) H Urine WBC 0-2 /HPF (0 - 2) Urine Squamous Epithelial Cells Few /LPF (NONE/OCC) Urine Calcium Oxalate Crystals Moderate /LPF (NONE) Urine Bacteria Few /HPF (NONE) Urine HCG, Qualitative Negative (NEGATIVE) White Blood Count 6.1 K/UL (4.8-10.8) Red Blood Count 5.02 M/UL (4.20-5.40) Hemoglobin 14.4 G/DL (12.0-16.0) Hematocrit 42.8 % (37.0-47.0) Mean Corpuscular Volume 85 FL (80-99) Mean Corpuscular Hemoglobin 28.6 PG (27.0-31.0) Mean Corpuscular Hemoglobin Concent 33.5 G/DL (32.0-36.0) Red Cell Distribution Width 12.0 % (11.6-14.8) Platelet Count 291 K/UL (150-450) Mean Platelet Volume 5.0 FL (6.5-10.1) L Neutrophils (%) (Auto) 56.8 % (45.0-75.0) Lymphocytes (%) (Auto) 29.2 % (20.0-45.0) Monocytes (%) (Auto) 9.9 % (1.0-10.0) Eosinophils (%) (Auto) 2.5 % (0.0-3.0) Basophils (%) (Auto) 1.7 % (0.0-2.0) Sodium Level 143 MMOL/L (136-145) Potassium Level 4.3 MMOL/L (3.5-5.1) Chloride Level 109 MMOL/L (98-107) H Carbon Dioxide Level 26 MMOL/L (21-32) Anion Gap 8 mmol/L (5-15) Blood Urea Nitrogen 21 mg/dL (7-18) H Creatinine 1.3 MG/DL (0.55-1.30) Estimate Glomerular Filtration Rate 52.5 mL/min (>60) Glucose Level 97 MG/DL (74-106) Calcium Level 9.6 MG/DL (8.5-10.1) Total Bilirubin 0.4 MG/DL (0.2-1.0) Aspartate Amino Transferase (AST) 13 U/L (15-37) L Alanine Aminotransferase (ALT) 14 U/L (12-78) Alkaline Phosphatase 64 U/L (46-116) Total Protein 7.4 G/DL (6.4-8.2) Albumin 3.5 G/DL (3.4-5.0) Globulin 3.9 g/dL Albumin/Globulin Ratio 0.9 (1.0-2.7) L Lipase 172 U/L (73-393) Chest X-Ray Diagnostic Results Chest X-Ray Diagnostic Results : Chest X-Ray Ordered: Yes # of Views/Limited/Complete: 1 View Indication: Shortness of Breath EP Interpretation: Yes Interpretation: no consolidation, no effusion, no pneumothorax, no acute cardiopulmonary disease Impression: No acute disease Electronically Signed by: Electronically signed by Dr. Reg Phan CT/MRI/US Diagnostic Results CT/MRI/US Diagnostic Results : Impression Procedure: CT Abdomen Pelvis w/Contrast CT ABDOMEN + PELVIS W/WO Contrast: Normal appendix. No acute process along the GI tract. Colonic diverticulosis without diverticulitis. The liver, gallbladder, pancreas, spleen, adrenal glands, kidneys, and reproductive organs are unremarkable. No free fluid or inflammatory changes. Dictated By: Gokul Roberson M.D. Electronically Signed By: Signed Date/Time Reevaluation Time: 22:46 Last Vital Signs Date Time Temp Pulse Resp B/P (MAP) Pulse Ox O2 Delivery O2 Flow Rate FiO2 11/05/18 20:10 98.2 77 18 156/117 94 Room Air Status: improved Reevaluation Impression Labs, chest x-ray are unremarkable. No evidence of pneumonia, pneumothorax or other pathology. CT scan of the abdomen does not show obvious kidney stone or evidence of appendicitis. There is diverticulosis without diverticulitis noticed but otherwise unremarkable exam. There is a moderate amount of stool burden particularly in the ascending colon. Patient's symptoms may be from a kidney stone that was passed over the past few days or from constipation. She will be started on a low-dose of MiraLAX and follow-up with outpatient. I strongly encouraged him to follow-up with her psychiatrist and gave her some resources to other mental health professionals in the area to discuss her cessation of her antipsychotic medications. She is currently not suicidal, not homicidal and has good insight into her health. I strongly encouraged her to return to the emergency department if her psychiatric conditions change in any way. We discussed other reasons to return to the emergency department including but not limited to worsening abdominal pain, vomiting, fevers, inability to eat/drink or severe diarrhea. She understands and agrees with this treatment plan will be discharged home. Disposition: HOME, SELF-CARE Condition: Improved Scripts Polyethylene Glycol 3350* (MIRALAX*) 17 Gm Powd.pack 17 GM ORAL DAILY for 7 Days, PACKET Prov: Reg Phan MD 11/05/18 Referrals: NON PHYSICIAN (PCP) Reg Phan MD Nov 05, 2018 20:37
--- NOTE | 2018-11-05 20:41 | NUR ---
ED Nurse Note: xray at bedside
--- NOTE | 2018-11-05 20:46 | NUR ---
ED Nurse Note: xray complete
[2018-11-05 20:48] LABS: APPEARANCE,URINE CLEAR; BILIRUBIN, URINE NEGATIVE (NEGATIVE); COLOR,URINE PALE YELLOW; GLUCOSE, URINE (UA) NEGATIVE (NEGATIVE); KETONES,URINE NEGATIVE (NEGATIVE); LEUKOCYTE ESTERASE ,URINE NEGATIVE (NEGATIVE); NITRITE,URINE NEGATIVE (NEGATIVE); PH,URINE 6 (4.5-8.0); PROTEIN,URINE 1+ (NEGATIVE); UROBILINOGEN,URINE NORMAL MG/DL (0.0-1.0)
[2018-11-05 21:27] LABS: BASOPHILS % (AUTO) 1.7 % (0.0-2.0); EOSINOPHILS % (AUTO) 2.5 % (0.0-3.0); HEMATOCRIT 42.8 % (37.0-47.0); HEMOGLOBIN 14.4 G/DL (12.0-16.0); LYMPHOCYTES % (AUTO) 29.2 % (20.0-45.0); MEAN CORPUSCULAR VOLUME 85 FL (80-99); MONOCYTES % (AUTO) 9.9 % (1.0-10.0); NEUTROPHILS % (AUTO) 56.8 % (45.0-75.0); PLATELET COUNT 291 K/UL (150-450); RED BLOOD COUNT 5.02 M/UL (4.20-5.40); WHITE BLOOD COUNT 6.1 K/UL (4.8-10.8)
[2018-11-05 21:40] LABS: ANION GAP 8 mmol/L (5-15); BLOOD UREA NITROGEN 21 mg/dL (7-18); CALCIUM 9.6 MG/DL (8.5-10.1); CARBON DIOXIDE 26 MMOL/L (21-32); CHLORIDE 109 MMOL/L (98-107); CREATININE 1.3 MG/DL (0.55-1.30); POTASSIUM 4.3 MMOL/L (3.5-5.1); SODIUM 143 MMOL/L (136-145)
[2018-11-05 21:45] LABS: ALANINE AMINOTRANSFERASE 14 U/L (12-78); ALBUMIN 3.5 G/DL (3.4-5.0); ALBUMIN/GLOBULIN RATIO 0.9 (1.0-2.7); ALKALINE PHOSPHATASE 64 U/L (46-116); ASPARTATE AMINO TRANSFERASE 13 U/L (15-37); BILIRUBIN,TOTAL 0.4 MG/DL (0.2-1.0)
--- NOTE | 2018-11-05 21:55 | NUR ---
ED Nurse Note: PT WENT TO CT
--- NOTE | 2018-11-05 22:07 | NUR ---
ED Nurse Note: PT RETURNED FROM CT
[2018-11-05 22:10] VITALS: BP 149/117
--- NOTE | 2018-11-05 22:33 | Diagnostic Imaging Report ---
Clinical Indication: Abdominal pain Technique: No oral contrast utilized, per emergency room physician request IV administration nonionic contrast. Venous phase spiral acquisition obtained through the abdomen and pelvis. Multiplanar reconstructions were generated. Total dose length product 700.07 mGycm. CTDIvol(s) 14.12 mGy. Dose reduction achieved using automated exposure control Comparison: none Findings: The appendix is normal. There are a few small diverticula. No evidence of diverticulitis. No small bowel distention. No free or loculated intraperitoneal gas or fluid is evident. The distal esophagus, stomach, duodenum are unremarkable. The liver demonstrates a small focus of fatty infiltration in the usual location adjacent to the falciform ligament, is otherwise unremarkable. The gallbladder, bile ducts, pancreas, spleen, adrenals, kidneys are all unremarkable. No retroperitoneal or mesenteric mass or adenopathy. No pelvic mass or adenopathy. Normal uterus and ovaries. There is an ovoid structure on the right side of the perineum which measures 3.5 cm long axis dimension. This may be related to the right vaginal wall The included lung bases demonstrate mild generalized interstitial septal prominence. The bones demonstrate degenerative changes of the lumbosacral junction. Impression: No acute process Colonic diverticulosis without evidence of diverticulitis Incidental finding focal fatty infiltration of the liver This agrees with the preliminary interpretation provided overnight by [facility] teleradiology service. Ovoid structure in the right side of the perineum, demonstrates soft tissue attenuation but could be a complicated cystic structure such as a complicated Ingrid's duct cyst. Recommend correlation with clinical exam.. This finding was not reported on the [facility] preliminary report, but was reported to Dr. Parish in the emergency room at the time of interpretation The CT scanner at [facility] is accredited by the [employer] and the scans are performed using protocols designed to limit radiation exposure to as low as reasonably achievable to attain images of sufficient resolution adequate for diagnostic evaluation.
[2018-11-05] MEDS ORDERED: MIRALAX17 G2 ORAL (22:44)
[2018-11-05 22:49] VITALS: BP 143/99
--- NOTE | 2018-11-05 22:50 | NUR ---
ER DISCHARGE NOTE: Patient is cleared to be discharged per ERMD, pt is aox4, on room air, with stable vital signs. pt was given dc and prescription instructions, pt was able to verbalize understanding, pt id band and iv site removed without complications. pt is able to ambulate with steady gait. pt took all belongings.
--- NOTE | 2018-11-06 09:25 | Diagnostic Imaging Report ---
Indication: Chest pain Technique: One view of the chest Comparison: 07/11/2017 Findings: Lungs and pleural spaces are clear. Heart size is normal. The aorta is somewhat tortuous Impression: No acute process
== END 2018-11-05 22:50 | disposition home or self-care (01) ==
LOC: EMR 20:20
DX: K57.90 Diverticulosis of intestine, part unspecified, without perforation or abscess without bleeding (principal); K59.00 Constipation, unspecified; I10 Essential (primary) hypertension; R10.9 Unspecified abdominal pain; I25.2 Old myocardial infarction; Z86.73 Personal history of transient ischemic attack (TIA), and cerebral infarction without residual deficits; Z88.0 Allergy status to penicillin; F20.9 Schizophrenia, unspecified; F14.10 Cocaine abuse, uncomplicated; R07.9 Chest pain, unspecified
CPT/HCPCS: 36415; 71045; 74177; 80053; 81003; 81025; 83690; 85025; 96361; 96374; 96375; 99284; J1885; J2405; Q9967

== ENCOUNTER 2019-08-26 21:44 | Emergency (ER) | payer OTHER ==
[~2019-08-26] VITALS: Ht 170.2 cm; Wt 72.6 kg
[~2019-08-26 21:44] MED LIST changes: +MIRALAX17 G2 ORAL
[2019-08-26 22:00] VITALS: BP 147/104
--- NOTE | 2019-08-26 22:00 | NUR ---
ED Nurse Note: pt ambulated into ed from home co chest pain that radiates to back x 8 hrs. Pt states recent surgery on 08/24/2019 and denies attending follow up. Pt VSS, ambulatory, skin intact. Awaiting ERMD at bedside
--- NOTE | 2019-08-26 22:09 | Emergency Room Report ---
History of Present Illness General Chief Complaint: Chest Pain Source: Patient Present Illness HPI This is a 49-year-old female with a history of high blood pressure. She had a recent laparoscopic appendectomy done at [facility] last week. She was discharged 3 days ago. She was doing well until this afternoon. 9 hours prior to arrival, she developed abdominal pain that goes to her left chest area. Radiate to her left shoulder area. Pain is been constant. Pain is 8 out of 10. No fever chills. No nausea no vomiting. Does have shortness of breath with the pain. Not relieved with her [place]. Denies any diarrhea or vomiting. She is passing gas. Pain is different than her usual abdominal pains after the surgery. 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 Quit March 2019 Last Menstrual Period: unk Now: No Immunizations: other Reviewed Nursing Documentation: PMH: Agreed; PSxH: Agreed Nursing Documentation-PMH Past Medical History: No History, Except For Hx Cardiac Problems: Yes - [place] 06/28/17, appendectomy 08/24/19 Hx Hypertension: Yes Hx Cerebrovascular Accident: Yes - 2011 Review of Systems Eye: Denies: eye pain, blurred vision ENT: Denies: ear pain, nose congestion, throat swelling Respiratory: Denies: cough, shortness of breath Cardiovascular: Reports: chest pain; Denies: palpitations Gastrointestinal: Reports: abdominal pain; Denies: diarrhea, nausea, vomiting Musculoskeletal: Denies: back pain, joint pain Skin: Denies: rash Neurological: Denies: headache, numbness Endocrine: Denies: increased thirst, increased urine Hematologic/Lymphatic: Denies: easy bruising All Other Systems: negative except mentioned in HPI Physical Exam Vital Signs Date Time Temp Pulse Resp B/P (MAP) Pulse Ox O2 Delivery O2 Flow Rate FiO2 08/26/19 21:50 99.1 85 18 147/104 (118) 93 Room Air Vitals unremarkable Sp02 EP Interpretation: reviewed, normal General Appearance: well appearing, no apparent distress, alert Head: normocephalic, atraumatic Eyes: bilateral eye PERRL, bilateral eye EOMI ENT: hearing grossly normal, normal pharynx Neck: full range of motion, supple, no meningismus Respiratory: chest non-tender, lungs clear, normal breath sounds Cardiovascular #1: regular rate, rhythm, no murmur Gastrointestinal: normal bowel sounds, no mass, no organomegaly, no bruit, non- distended, other - Surgical site is clean. Musculoskeletal: back normal, normal range of motion, gait/station normal Psychiatric: mood/affect normal Medical Decision Making Diagnostic Impression: Primary Impression: Chest pain Qualified Codes: R07.9 - Chest pain, unspecified ER Course Patient presents with chest pain. Pain is been ongoing for more than [address] scan negative for PE. Troponin negative. Have atelectasis but this is probably secondary to recent surgery. She has no cough or congestion. Abdominal CT is unremarkable other than postoperative changes. Patient felt better now. Will discharge home. EKG Diagnostic Results Rate: normal Rhythm: NSR ST Segments: other - NSST changes with TWI Rhythm Strip Diag. Results EP Interpretation: yes Rate: 75 Rhythm: NSR, no PVC's, no ectopy Chest X-Ray Diagnostic Results Chest X-Ray Diagnostic Results : Chest X-Ray Ordered: Yes # of Views/Limited/Complete: 1 View Indication: Chest Pain EP Interpretation: Yes Interpretation: no consolidation, no effusion, no pneumothorax, no acute cardiopulmonary disease Impression: No acute disease Electronically Signed by: Kirby Chambers MD CT/MRI/US Diagnostic Results CT/MRI/US Diagnostic Results : Imaging Test Ordered: CT chest abdomen pelvis Impression Read by radiologist. CT chest: No PE. Mild peripheral groundglass and atelectasis. CT abdomen pelvis: Postsurgical changes from recent appendectomy. Last Vital Signs Date Time Temp Pulse Resp B/P (MAP) Pulse Ox O2 Delivery O2 Flow Rate FiO2 08/26/19 21:50 99.1 85 18 147/104 (118) 93 Room Air Status: improved Disposition: HOME, SELF-CARE Condition: Stable Patient Instructions: Nonspecific Chest Pain Additional Instructions: Follow-up with your surgeon as scheduled. Take your pain medication as needed. Return if symptoms worsen. Kirby Chambers MD Aug 26, 2019 22:09
[2019-08-26] MEDS ORDERED: HYDROmorphone 1mg/ml Carpuject IVP ONE (22:15)
[2019-08-26] MEDS ORDERED: Omnipaque-300 100ml vial INJ ONE (22:15)
--- NOTE | 2019-08-26 22:20 | NUR ---
ED Nurse Note: all bloodwork and UA sent to lab. all medications administered, pt tolerated well no ss of distress noted.
[2019-08-26 22:22] LABS: BASOPHILS % (AUTO) 1.2 % (0.0-2.0); EOSINOPHILS % (AUTO) 1.7 % (0.0-3.0); HEMATOCRIT 43.2 % (37.0-47.0); HEMOGLOBIN 13.2 G/DL (12.0-16.0); LYMPHOCYTES % (AUTO) 36.5 % (20.0-45.0); MEAN CORPUSCULAR VOLUME 89 FL (80-99); MONOCYTES % (AUTO) 11.7 % (1.0-10.0); NEUTROPHILS % (AUTO) 48.9 % (45.0-75.0); PLATELET COUNT 390 K/UL (150-450); RED BLOOD COUNT 4.85 M/UL (4.20-5.40); RED CELL DISTRIBUTION WIDTH 13.6 % (11.6-14.8); WHITE BLOOD COUNT 5.6 K/UL (4.8-10.8)
[2019-08-26 22:32] LABS: ANION GAP 11 mmol/L (5-15); BLOOD UREA NITROGEN 24 mg/dL (7-18); CALCIUM 9.6 MG/DL (8.5-10.1); CARBON DIOXIDE 25 MMOL/L (21-32); CHLORIDE 105 MMOL/L (98-107); CREATININE 1.4 MG/DL (0.55-1.30); POTASSIUM 3.9 MMOL/L (3.5-5.1); SODIUM 141 MMOL/L (136-145)
[2019-08-26 22:36] LABS: ALANINE AMINOTRANSFERASE 16 U/L (12-78); ALBUMIN/GLOBULIN RATIO 0.7 (1.0-2.7); ALKALINE PHOSPHATASE 55 U/L (46-116); ASPARTATE AMINO TRANSFERASE 16 U/L (15-37); BILIRUBIN,TOTAL 0.2 MG/DL (0.2-1.0)
[2019-08-26 22:50] LABS: APPEARANCE,URINE SLIGHTLY CLOUDY; BILIRUBIN, URINE NEGATIVE (NEGATIVE); GLUCOSE, URINE (UA) NEGATIVE (NEGATIVE); KETONES,URINE 1+ (NEGATIVE); LEUKOCYTE ESTERASE ,URINE 1+ (NEGATIVE); NITRITE,URINE NEGATIVE (NEGATIVE); PH,URINE 5 (4.5-8.0); PROTEIN,URINE 2+ (NEGATIVE); UROBILINOGEN,URINE NORMAL MG/DL (0.0-1.0)
[2019-08-26 22:54] LABS: COLOR,URINE YELLOW
--- NOTE | 2019-08-26 23:00 | NUR ---
ED Nurse Note: pt taken to CT in stable condition, VSS no ss of distress noted
--- NOTE | 2019-08-26 23:34 | Diagnostic Imaging Report ---
EXAM: CT Abdomen and Pelvis With Intravenous Contrast CLINICAL HISTORY: PAIN TECHNIQUE: Axial computed tomography images of the abdomen and pelvis with intravenous contrast. CTDI is 4 mGy and DLP is 137 mGy-cm. One or more of the following dose reduction techniques were used: automated exposure control, adjustment of the mA and/or kV according to patient size, use of iterative reconstruction technique. COMPARISON: No relevant prior studies available. FINDINGS: Lung bases: Unremarkable. No mass. No consolidation. ABDOMEN: Liver: Unremarkable. No mass. Gallbladder and bile ducts: Unremarkable. No calcified stones. No ductal dilation. Pancreas: Unremarkable. No mass. No ductal dilation. Spleen: Unremarkable. No splenomegaly. Adrenals: Unremarkable. No mass. Kidneys and ureters: Unremarkable. No solid mass. No hydronephrosis. Stomach and bowel: Fluid filled small bowel within the pelvis, likely reactive. No obstruction. PELVIS: Appendix: Postsurgical changes from what appears to be a recent appendectomy. There is fat stranding and a few small foci of free air, favored postsurgical. Bladder: Unremarkable. No mass. Reproductive: Unremarkable as visualized. ABDOMEN and PELVIS: Intraperitoneal space: See above. Bones/joints: No acute fracture. No dislocation. Soft tissues: Unremarkable. Vasculature: Unremarkable. No abdominal aortic aneurysm. Lymph nodes: Unremarkable. No enlarged lymph nodes. IMPRESSION: Postsurgical changes from what appears to be a recent appendectomy. There is fat stranding and a few small foci of free air in the surgical bed, favored postsurgical. No abscess. Correlate clinically.
--- NOTE | 2019-08-26 23:38 | Diagnostic Imaging Report ---
EXAM: CT Angiography Chest With Intravenous Contrast CLINICAL HISTORY: PE TECHNIQUE: Axial computed tomographic angiography images of the chest with intravenous contrast. CTDI is 31 mGy and DLP is 472 mGy-cm. One or more of the following dose reduction techniques were used: automated exposure control, adjustment of the mA and/or kV according to patient size, use of iterative reconstruction technique. MIP reconstructed images were created and reviewed. COMPARISON: 06/29/2017 FINDINGS: Pulmonary arteries: No pulmonary embolism. Aorta: Normal caliber of the aorta. No dissection. Lungs: Mild peripheral groundglass and atelectasis. Pleural space: Unremarkable. No significant effusion. No pneumothorax. Heart: Unremarkable. Bones/joints: No acute fracture. Soft tissues: Unremarkable. Lymph nodes: Unremarkable. IMPRESSION: 1. No pulmonary embolism. 2. Mild peripheral groundglass and atelectasis. Findings may be related to poor inspiratory effort however atypical infection including Covid can cause a similar appearance.
[2019-08-27 00:22] VITALS: BP 138/89
[2019-08-27 00:23] VITALS: BP 138/89
--- NOTE | 2019-08-27 00:23 | NUR ---
ER DISCHARGE NOTE: Patient is cleared to be discharged per ERMD, pt is aox4, on room air, with stable vital signs. pt was given dc instructions, pt was able to verbalize understanding, pt id band and iv site removed without complications. pt is able to ambulate with steady gait. pt took all belongings.
--- NOTE | 2019-08-27 08:51 | Diagnostic Imaging Report ---
Indication: Chest pain Technique: One view of the chest Comparison: 11/05/2018 Findings: There is a 1.5 cm nodule projecting at the left lung base. This is not evident previously. The lungs and pleural spaces are clear otherwise. The heart size is normal. The aorta is tortuous Impression: 1.5 cm left lung base nodule. Possibly but not likely a nipple shadow, neoplasm must be ruled out. Consider repeat chest x-ray with nipple markers, with consideration for CT scan if not a nipple shadow No acute process otherwise Findings discussed by phone with Dr. Merino at the time of interpretation
--- NOTE | 2019-08-27 21:00 | NUR ---
Note kosta in EDM - 08/29/19 at 1937 by AMEENA ED Nurse Note: pt ambulated into ed from home co chest pain that radiates to back x 8 hrs. Pt states recent surgery on 08/24/2019 and denies attending follow up. Pt VSS, ambulatory, skin intact. Awaiting ERMD at bedside
--- NOTE | 2019-08-27 22:20 | NUR ---
Juan brambila in EDM - 08/29/19 at 1937 by AMEENA ED Nurse Note: all bloodwork and UA sent to lab
== END 2019-08-27 00:25 | disposition home or self-care (01) ==
LOC: EMR 22:11
DX: R07.9 Chest pain, unspecified (principal); Z90.89 Acquired absence of other organs; Z88.0 Allergy status to penicillin; I10 Essential (primary) hypertension; I25.2 Old myocardial infarction; Z86.73 Personal history of transient ischemic attack (TIA), and cerebral infarction without residual deficits
CPT/HCPCS: 36415; 71045; 71275; 74177; 80053; 81003; 81025; 84484; 85025; 93005; 96361; 96374; 96375; J1170; J2405; J7030; Q9967; Z7502; 99284

== ENCOUNTER 2019-09-02 12:59 | Emergency (ER) | payer OTHER ==
[~2019-09-02] VITALS: Ht 170.2 cm; Wt 72.6 kg
--- NOTE | 2019-09-02 13:00 | NUR ---
ED Nurse Note: Pt ambulated to ED from home d/t sharp sternal chest pain since this morning. Pt is AOx4, cooperative noted with facial grimacing. Pt reports to be s/p appendectomy on August, post-surgical site covered, kempt noted with no bleeding. Pt's VSS, on RA, afebrile on triage. Placed on bed and gown. will continue to monitor.
[2019-09-02 13:10] VITALS: BP 147/94
[2019-09-02 13:11] VITALS: BP 147/94
[2019-09-02] MEDS ORDERED: Omnipaque-300 100ml vial INJ PRN (13:15)
[2019-09-02 13:42] LABS: BASOPHILS % (AUTO) 0.9 % (0.0-2.0); EOSINOPHILS % (AUTO) 2.8 % (0.0-3.0); HEMATOCRIT 43.2 % (37.0-47.0); LYMPHOCYTES % (AUTO) 19.2 % (20.0-45.0); MEAN CORPUSCULAR VOLUME 90 FL (80-99); MONOCYTES % (AUTO) 6.4 % (1.0-10.0); NEUTROPHILS % (AUTO) 70.7 % (45.0-75.0); PLATELET COUNT 487 K/UL (150-450); RED BLOOD COUNT 4.79 M/UL (4.20-5.40); RED CELL DISTRIBUTION WIDTH 14.4 % (11.6-14.8); WHITE BLOOD COUNT 8.3 K/UL (4.8-10.8)
[2019-09-02 13:47] LABS: INR 1.1 (0.9-1.1)
[2019-09-02 13:49] LABS: ANION GAP 9 mmol/L (5-15); BLOOD UREA NITROGEN 19 mg/dL (7-18); CALCIUM 8.8 MG/DL (8.5-10.1); CARBON DIOXIDE 27 MMOL/L (21-32); CHLORIDE 105 MMOL/L (98-107); CREATININE 1.3 MG/DL (0.55-1.30); POTASSIUM 3.8 MMOL/L (3.5-5.1); SODIUM 141 MMOL/L (136-145)
--- NOTE | 2019-09-02 13:51 | NUR ---
ED Nurse Note: x-ray at bedside.
[2019-09-02 13:59] LABS: ALANINE AMINOTRANSFERASE 20 U/L (12-78); ALBUMIN 3.1 G/DL (3.4-5.0); ALBUMIN/GLOBULIN RATIO 0.8 (1.0-2.7); ALKALINE PHOSPHATASE 52 U/L (46-116); ASPARTATE AMINO TRANSFERASE 23 U/L (15-37); BILIRUBIN,TOTAL 0.3 MG/DL (0.2-1.0)
--- NOTE | 2019-09-02 14:00 | NUR ---
ED Nurse Note: pt taken to CT on stable condition.
[2019-09-02 14:06] LABS: APPEARANCE,URINE CLEAR; BILIRUBIN, URINE NEGATIVE (NEGATIVE); GLUCOSE, URINE (UA) NEGATIVE (NEGATIVE); KETONES,URINE 1+ (NEGATIVE); LEUKOCYTE ESTERASE ,URINE 2+ (NEGATIVE); NITRITE,URINE NEGATIVE (NEGATIVE); PH,URINE 6 (4.5-8.0); PROTEIN,URINE 1+ (NEGATIVE); UROBILINOGEN,URINE 1 MG/DL (0.0-1.0)
[2019-09-02 14:11] LABS: COLOR,URINE YELLOW
--- NOTE | 2019-09-02 14:11 | Diagnostic Imaging Report ---
Indication: Reason For Exam: PAIN Technique: XRAY Chest 1v. Comparison: 08/26/2019 Findings: The cardiomediastinal silhouette is stable. There are no acute infiltrates. Impression: No acute abnormality. .
--- NOTE | 2019-09-02 14:26 | Emergency Room Report ---
History of Present Illness General Chief Complaint: Abdominal Pain Source: Patient (Anita Martinez DO) Present Illness HPI This patient is 12 days postop from a lap appendectomy. She states that she developed chest pain 5 days later after her surgery. She was evaluated and had a negative work-up. She states she had been doing well until the last day when she is developed intermittent sharp chest pain. She states is difficult to take a deep breath. She states she also has pain at the postoperative site that is located midline. She states her other postoperative sites feel fine. She is very tender in that location. She is also had nausea and an episode of vomiting. She states she had her surgery at [facility]. She states she has been unable to contact her surgeon at [facility]. She denies fever or chills. She denies cough or congestion. She has no other complaints. (Anita Martinez DO) Allergies: Coded Allergies: PENICILLINS (Verified Allergy, Unknown, 01/01/14) COVID-19 Screening Contact w/high risk pt: No Recent Travel to affected area: No Experienced COVID-19 symptoms?: No COVID-19 Testing performed INFORMATICA: No (Anita MartinezHolden ) Patient History Past Medical History: see triage record, HTN Social History: Reports: drug use - THC; Denies: smoking, alcohol use Last Menstrual Period: na Now: No Reviewed Nursing Documentation: PMH: Agreed; PSxH: Agreed (Anita MartinezHolden ) Nursing Documentation-PMH Hx Cardiac Problems: Yes - TX 06/28/17, appendectomy 08/21/19 Hx Hypertension: Yes Hx Cerebrovascular Accident: Yes - 2011 (Anita MartinezHolden ) Review of Systems All Other Systems: negative except mentioned in HPI (Anita MartinezHolden ) Physical Exam Vital Signs Date Time Temp Pulse Resp B/P (MAP) Pulse Ox O2 Delivery O2 Flow Rate FiO2 09/02/19 13:05 98.4 96 17 147/94 (111) 98 Room Air Sp02 EP Interpretation: reviewed, normal General Appearance: no apparent distress, alert, GCS 15, non-toxic Head: normocephalic, atraumatic Eyes: bilateral eye normal inspection, bilateral eye PERRL ENT: hearing grossly normal, normal pharynx, no angioedema, normal voice Neck: normal inspection, full range of motion Respiratory: chest non-tender, lungs clear, normal breath sounds, no respiratory distress, no retraction, no accessory muscle use, speaking full sentences Cardiovascular #1: regular rate, rhythm, no edema Gastrointestinal: normal bowel sounds, soft, non-distended, no guarding, no rebound, tenderness - TTP over the midline surgical excision. Rectal: deferred Musculoskeletal: back normal, normal range of motion, gait/station normal, non- tender Neurologic: alert, motor strength/tone normal, oriented x3, sensory intact, responsive, speech normal Psychiatric: judgement/insight normal, memory normal, mood/affect normal, no suicidal/homicidal ideation Skin: no rash, normal color (Anita Martinez DO) Medical Decision Making Diagnostic Impression: Primary Impression: Chest pain Additional Impression: Abdominal pain ER Course This patient has chest and abdominal pain. My differential diagnosis includes PE, postoperative infection or other postoperative complication, pneumothorax, acute coronary syndrome. Given the patient's history, I felt that I should rule out a PE in addition to any complication related to the patient's recent appendectomy. CT of the chest, abdomen and pelvis are pending at the time of this dictation. Final disposition per Dr. Wallace. Laboratory Tests Test 09/02/19 13:25 09/02/19 13:43 White Blood Count 8.3 K/UL (4.8-10.8) Red Blood Count 4.79 M/UL (4.20-5.40) Hemoglobin 13.0 G/DL (12.0-16.0) Hematocrit 43.2 % (37.0-47.0) Mean Corpuscular Volume 90 FL (80-99) Mean Corpuscular Hemoglobin 27.1 PG (27.0-31.0) Mean Corpuscular Hemoglobin Concent 30.1 G/DL (32.0-36.0) L Red Cell Distribution Width 14.4 % (11.6-14.8) Platelet Count 487 K/UL (150-450) H Mean Platelet Volume 5.3 FL (6.5-10.1) L Neutrophils (%) (Auto) 70.7 % (45.0-75.0) Lymphocytes (%) (Auto) 19.2 % (20.0-45.0) L Monocytes (%) (Auto) 6.4 % (1.0-10.0) Eosinophils (%) (Auto) 2.8 % (0.0-3.0) Basophils (%) (Auto) 0.9 % (0.0-2.0) Prothrombin Time 11.6 SEC (9.30-11.50) H Prothrombin Time INR 1.1 (0.9-1.1) Activated Partial Thromboplast Time 28 SEC (23-33) D-Dimer 3.14 mg/L FEU (0.00-0.49) H Sodium Level 141 MMOL/L (136-145) Potassium Level 3.8 MMOL/L (3.5-5.1) Chloride Level 105 MMOL/L (98-107) Carbon Dioxide Level 27 MMOL/L (21-32) Anion Gap 9 mmol/L (5-15) Blood Urea Nitrogen 19 mg/dL (7-18) H Creatinine 1.3 MG/DL (0.55-1.30) Estimated Glomerular Filtration Rate 52.4 mL/min (>60) Glucose Level 105 MG/DL (74-106) Calcium Level 8.8 MG/DL (8.5-10.1) Total Bilirubin 0.3 MG/DL (0.2-1.0) Aspartate Amino Transferase (AST) 23 U/L (15-37) Alanine Aminotransferase (ALT) 20 U/L (12-78) Alkaline Phosphatase 52 U/L (46-116) Troponin I 0.000 ng/mL (0.000-0.056) Pro-B-Type Natriuretic Peptide 29 pg/mL (0-125) Total Protein 7.0 G/DL (6.4-8.2) Albumin 3.1 G/DL (3.4-5.0) L Globulin 3.9 g/dL Albumin/Globulin Ratio 0.8 (1.0-2.7) L Lipase 456 U/L (73-393) H Urine Color Yellow Urine Appearance Clear Urine pH 6 (4.5-8.0) Urine Specific [place] 1.020 (1.005-1.035) Urine Protein 1+ (NEGATIVE) H Urine Glucose (UA) Negative (NEGATIVE) Urine Ketones 1+ (NEGATIVE) H Urine Blood Negative (NEGATIVE) Urine Nitrite Negative (NEGATIVE) Urine Bilirubin Negative (NEGATIVE) Urine Urobilinogen 1 MG/DL (0.0-1.0) H Urine Leukocyte Esterase 2+ (NEGATIVE) H Urine RBC 0 /HPF (0 - 2) Urine WBC 2-4 /HPF (0 - 2) Urine Squamous Epithelial Cells Few /LPF (NONE/OCC) Urine Bacteria Few /HPF (NONE) (Anita Martinez DO) ER Course Please refer to the initial history for the exam and presentation At this time patient was pending CT follow-up Abdomen pelvis was negative CT chest does not show any acute disease Patient's blood work remains appropriate patient was further IV hydrated and given the repeat presentation was requested for further inpatient care and secondary to insurance purposes and continued of care is set for transfer Labs Test 09/02/19 13:25 09/02/19 13:43 White Blood Count 8.3 K/UL (4.8-10.8) Red Blood Count 4.79 M/UL (4.20-5.40) Hemoglobin 13.0 G/DL (12.0-16.0) Hematocrit 43.2 % (37.0-47.0) Mean Corpuscular Volume 90 FL (80-99) Mean Corpuscular Hemoglobin 27.1 PG (27.0-31.0) Mean Corpuscular Hemoglobin Concent 30.1 G/DL (32.0-36.0) Red Cell Distribution Width 14.4 % (11.6-14.8) Platelet Count 487 K/UL (150-450) Mean Platelet Volume 5.3 FL (6.5-10.1) Neutrophils (%) (Auto) 70.7 % (45.0-75.0) Lymphocytes (%) (Auto) 19.2 % (20.0-45.0) Monocytes (%) (Auto) 6.4 % (1.0-10.0) Eosinophils (%) (Auto) 2.8 % (0.0-3.0) Basophils (%) (Auto) 0.9 % (0.0-2.0) Prothrombin Time 11.6 SEC (9.30-11.50) Prothromb Time International Ratio 1.1 (0.9-1.1) Activated Partial Thromboplast Time 28 SEC (23-33) D-Dimer 3.14 mg/L FEU (0.00-0.49) Sodium Level 141 MMOL/L (136-145) Potassium Level 3.8 MMOL/L (3.5-5.1) Chloride Level 105 MMOL/L (98-107) Carbon Dioxide Level 27 MMOL/L (21-32) Anion Gap 9 mmol/L (5-15) Blood Urea Nitrogen 19 mg/dL (7-18) Creatinine 1.3 MG/DL (0.55-1.30) Estimat Glomerular Filtration Rate 52.4 mL/min (>60) Glucose Level 105 MG/DL (74-106) Calcium Level 8.8 MG/DL (8.5-10.1) Total Bilirubin 0.3 MG/DL (0.2-1.0) Aspartate Amino Transf (AST/SGOT) 23 U/L (15-37) Alanine Aminotransferase (ALT/SGPT) 20 U/L (12-78) Alkaline Phosphatase 52 U/L (46-116) Troponin I 0.000 ng/mL (0.000-0.056) Pro-B-Type Natriuretic Peptide 29 pg/mL (0-125) Total Protein 7.0 G/DL (6.4-8.2) Albumin 3.1 G/DL (3.4-5.0) Globulin 3.9 g/dL Albumin/Globulin Ratio 0.8 (1.0-2.7) Lipase 456 U/L (73-393) Urine Color Yellow Urine Appearance Clear Urine pH 6 (4.5-8.0) Urine Specific [place] 1.020 (1.005-1.035) Urine Protein 1+ (NEGATIVE) Urine Glucose (UA) Negative (NEGATIVE) Urine Ketones 1+ (NEGATIVE) Urine Blood Negative (NEGATIVE) Urine Nitrite Negative (NEGATIVE) Urine Bilirubin Negative (NEGATIVE) Urine Urobilinogen 1 MG/DL (0.0-1.0) Urine Leukocyte Esterase 2+ (NEGATIVE) Urine RBC 0 /HPF (0 - 2) Urine WBC 2-4 /HPF (0 - 2) Urine Squamous Epithelial Cells Few /LPF (NONE/OCC) Urine Bacteria Few /HPF (NONE) Urine Opiates Screen Negative (NEGATIVE) Urine Barbiturates Screen Negative (NEGATIVE) Phencyclidine (PCP) Screen Negative (NEGATIVE) Urine Amphetamines Screen Negative (NEGATIVE) Urine Benzodiazepines Screen Negative (NEGATIVE) Urine Cocaine Screen Positive (NEGATIVE) Urine Marijuana (THC) Screen Negative (NEGATIVE) (Ruth Wallace DO) EKG Diagnostic Results Rate: normal Rhythm: NSR ST Segments: other - NSST ([facility]) Rhythm Strip Diag. Results EP Interpretation: yes Rate: 80's Rhythm: NSR, no PVC's, no ectopy ([facility]) EP Interpretation: yes Rate: 77 Rhythm: NSR, no PVC's, no ectopy (Ruth Wallace DO) Chest X-Ray Diagnostic Results Chest X-Ray Diagnostic Results : Chest X-Ray Ordered: Yes # of Views/Limited/Complete: 1 View Indication: Chest Pain EP Interpretation: Yes Interpretation: no consolidation, no effusion, no pneumothorax, no acute cardiopulmonary disease Impression: No acute disease Electronically Signed by: Anita Martinez DO ([facility]) Chest X-Ray Diagnostic Results : Chest X-Ray Ordered: Yes # of Views/Limited/Complete: 1 View Indication: Chest Pain EP Interpretation: Yes Interpretation: no consolidation, no effusion, no pneumothorax Impression: No acute disease Electronically Signed by: Ruth Wallace DO (Ruth Wallace DO) CT/MRI/US Diagnostic Results CT/MRI/US Diagnostic Results : Imaging Test Ordered: CT chest, abd/pelvis ([facility]) CT/MRI/US Diagnostic Results : Impression CTA chestImpression: Peripheral groundglass densities which were previously described, probably slightly decreased.. These are nonspecific. No evidence of pulmonary emboli or aortic dissection. CT abdomen pelvisImpression: Evidence of recent appendectomy. (Ruth Wallace DO) Last Vital Signs Date Time Temp Pulse Resp B/P (MAP) Pulse Ox O2 Delivery O2 Flow Rate FiO2 09/02/19 13:11 98.4 130 17 147/94 98 Room Air ([facility]) Status: improved (Ruth Wallace DO) Disposition: SHORT-TERM HOSP Condition: Improved Referrals: [facility],REFERRING (PCP) Anita Martinez [facility] Sep 02, 2019 14:26 Ruth Wallace DO Sep 02, 2019 16:48
--- NOTE | 2019-09-02 14:35 | NUR ---
ED Nurse Note: pt was taken again for CT, on stable condition.
--- NOTE | 2019-09-02 15:03 | Diagnostic Imaging Report ---
Indication: Reason For Exam: PAIN Technique: Continuous helical scanning was performed with intravenous contrast material only from the diaphragms through the pelvis per specific request of the ordering physician. Axial, sagittal, and coronal images were generated. Dose: Total Dose Length Product - DLP [address] Dose Index - CTDIvol(s) 5.80 mGy. Automated exposure control was utilized for dose reduction. Comparison: None Findings: The liver and spleen are normal. Gallbladder is normal. Pancreas is unremarkable. Adrenal glands are normal. Kidneys are normal. Calcification is noted in the aorta. Retroperitoneum is free of significant adenopathy. There is no evidence of free intra-abdominal fluid. The kidneys are normal. The uterus is normal. Ovaries are unremarkable. Bladder is normal. Moderate fecal material is present in the colon. There are clips in the region of the umbilicus. The appendix is surgically absent by history. Impression: Evidence of recent appendectomy. Atherosclerotic change. No acute abnormality. The CT scanner at [facility] is accredited by the [employer] and the scans are performed using protocols designed to limit radiation exposure to as low as reasonably achievable to attain images of sufficient resolution adequate for diagnostic evaluation.
--- NOTE | 2019-09-02 15:15 | NUR ---
ED Nurse Note: pt returned from CT on stable condition.
--- NOTE | 2019-09-02 15:46 | Diagnostic Imaging Report ---
Indication: Shortness of breath Technique: CT angiography performed utilizing thin section spiral CT and bolus contrast injection. Axial, coronal, and sagittal images were generated. Maximum intensity projections (MIPs) were obtained in the coronal and sagittal planes. Dose: Total Dose Length Product - DLP [address] Dose Index - CTDIvol(s) 40 mGy. Automated exposure control was utilized for dose reduction. COMPARISON: CTA of the chest 08/26/2019 Findings: The heart is normal in size. There is no evidence of right heart strain. Is normal in caliber. There is no evidence of aortic dissection or aortic aneurysm. Pulmonary arteries are normal. There are no pulmonary emboli. There are scattered groundglass densities. There are mostly peripheral. No evidence of pleural effusion. Impression: Peripheral groundglass densities which were previously described, probably slightly decreased.. These are nonspecific. No evidence of pulmonary emboli or aortic dissection. The CT scanner at [facility] is accredited by the [employer] and the scans are performed using protocols designed to limit radiation exposure to as low as reasonably achievable to attain images of sufficient resolution adequate for diagnostic evaluation.
[2019-09-02 16:00] VITALS: BP 140/90
--- NOTE | 2019-09-02 16:39 | NUR ---
ED Nurse Note: offered snacks and juice, PADMA aware.
--- NOTE | 2019-09-02 18:04 | NUR ---
ED Nurse Note: report given to BAR Carty in [place] [facility] for transfer of care.
[2019-09-02 18:05] VITALS: BP 143/87
--- NOTE | 2019-09-02 18:19 | NUR ---
ED Nurse Note: [facility]AL[facility] 25 arrived, pt was transported to [facility] via gurney in stable condition.
[2019-09-02 18:20] VITALS: BP 140/90
== END 2019-09-02 18:20 | disposition short-term general hospital (02) ==
LOC: EMR 13:32
DX: R07.9 Chest pain, unspecified (principal); R10.9 Unspecified abdominal pain; Z90.89 Acquired absence of other organs; Z88.0 Allergy status to penicillin; I10 Essential (primary) hypertension; I25.2 Old myocardial infarction; Z86.73 Personal history of transient ischemic attack (TIA), and cerebral infarction without residual deficits
CPT/HCPCS: 36415; 71045; 71275; 74177; 80053; 80307; 81003; 83690; 83880; 84484; 85025; 85379; 85610; 85730; 93005; 96360; 99285; J7030; Q9967

== ENCOUNTER 2019-10-18 14:22 | Emergency (ER) | payer OTHER ==
[~2019-10-18] VITALS: Ht 170.2 cm; Wt 64.4 kg
[2019-10-18 14:30] VITALS: BP 154/97
--- NOTE | 2019-10-18 14:30 | NUR ---
ED Nurse Note: Pt walked in from home c/o lower/mid abd pain. Pt reports having appendectomy and partial colectomy last month. Respirations even and unlabored on room air. Vitals stable as documented. Pt A+Ox4, but drowsy. Pt fell asleep when speaking with ED MD. Pt reports taking norco at home, but not taking it today.
[2019-10-18] MEDS ORDERED: Omnipaque-300 100ml vial INJ PRN (14:45)
--- NOTE | 2019-10-18 14:51 | Emergency Room Report ---
History of Present Illness General Chief Complaint: Abdominal Pain Source: Patient Present Illness HPI Patient is a 49-year-old female presents to the ER complaining of abdominal pain. Patient states that she had an appendectomy and partial colectomy on September 19 at [facility]. She states that for the past 3 weeks has had intermittent abdominal pain, nausea and vomiting. She also states that she has had a UTI and has intermittently been on Bactrim and Flagyl. Patient states that she has been here in [facility] since her surgery. Patient denies any chest pain or shortness of breath. She denies any fever or chills. Patient states that when her pain becomes intense she momentarily passes out from her pain. Patient states that she has been on [place] for her pain but did not take any today. Allergies: Coded Allergies: PENICILLINS (Verified Allergy, Unknown, 01/01/14) COVID-19 Screening Contact w/high risk pt: No Recent Travel to affected area: No Experienced COVID-19 symptoms?: No COVID-19 Screening: Negative COVID-19 COVID-19 Testing Source: nasopharyn Patient History Last Menstrual Period: 6 years ago Reviewed Nursing Documentation: PMH: Agreed; PSxH: Agreed Nursing Documentation-PMH Past Medical History: No History, Except For Hx Hypertension: Yes Hx Cerebrovascular Accident: Yes - 2011 Review of Systems All Other Systems: negative except mentioned in HPI Physical Exam Vital Signs Date Time Temp Pulse Resp B/P (MAP) Pulse Ox O2 Delivery O2 Flow Rate FiO2 10/18/19 14:28 98.2 92 16 160/107 (124) 100 Room Air Sp02 EP Interpretation: reviewed, normal General Appearance: no apparent distress, alert, GCS 15, non-toxic Head: normocephalic, atraumatic Eyes: bilateral eye normal inspection, bilateral eye PERRL ENT: hearing grossly normal, normal pharynx, no angioedema, normal voice Neck: full range of motion, supple/symm/no masses Respiratory: chest non-tender, lungs clear, normal breath sounds, speaking full sentences Cardiovascular #1: regular rate, rhythm, no edema Cardiovascular #2: 2+ carotid (R), 2+ carotid (L), 2+ radial (R), 2+ radial (L) , 2+ dorsalis pedis (R), 2+ dorsalis pedis (L) Gastrointestinal: normal bowel sounds, soft, non-distended, no guarding, no rebound, other - Diffuse abdominal tenderness maximal in the periumbilical region Rectal: deferred Genitourinary: normal inspection, no CVA tenderness Musculoskeletal: back normal, normal range of motion, no calf tenderness, gait/ station normal, non-tender Neurologic: networks software consultant III-XII nml as tested Psychiatric: no suicidal/homicidal ideation Skin: no rash Lymphatic: no adenopathy Medical Decision Making Diagnostic Impression: Primary Impression: Urinary tract infection Additional Impressions: Cocaine abuse Marijuana abuse Enteritis ER Course Patient's labs demonstrate evidence for UTI. Prior culture sensitive to Macrobid. Patient has been started on Macrobid. CT of the abdomen pelvis demonstrates evidence for cystitis and enteritis. Patient given IV fluids, Zofran and fentanyl in the emergency room. She is also been given Macrobid. She will be discharged a prescription for Macrobid, Zofran, Pepcid as well as tramadol. Patient's vital signs have been stable. UDS positive for cocaine as well as THC although she did to me that she did not do any drugs. After discussing risks and benefits of further diagnostics, treatment plans, as well as indications for and risks of admission, the patient is agreeable to being discharged home. I have explained that their evaluation and treatment in the emergency department today is an important step towards them achieving better health but that their evaluation today is not intended to replace further evaluation and treatment by a physician in their local clinic. I have explained that while the current findings suggest no immediate life threatening emergency they will require further evaluation and treatment by a physician of their choice in their area. They understand that it will be necessary for them to review the final reports of their ED visit with their clinic physician. We have reviewed indications for return to the Emergency Department. I have explained that additional time may need to pass and/or additional testing as an outpatient may be necessary before a definitive diagnosis can be made. They tell me they are willing to follow up as instructed within the timeframe I recommend. They appear to understand what we discussed. Additionally they understand that if they are unable to be seen by an outpatient physician they are welcome, and in fact should, return to the Emergency Department for a repeat evaluation. The patient is stable at time of discharge. EKG Diagnostic Results EKG Time: 14:55 EP Interpretation: Marie Brito MD Rate: normal - 82 bpm Rhythm: NSR ST Segments: no acute changes ASA given to the pt in ED: No Last Vital Signs Date Time Temp Pulse Resp B/P (MAP) Pulse Ox O2 Delivery O2 Flow Rate FiO2 10/18/19 14:28 98.2 92 16 160/107 (124) 100 Room Air Disposition: HOME, SELF-CARE Condition: Stable Scripts Nitrofurantoin Monohyd/M-Cryst* (MACROBID 100 MG*) 100 Mg Capsule 100 MG ORAL EVERY 12 HOURS for 7 Days, #14 CAP Prov: Marie Brito M.D. 10/18/19 Famotidine* (Pepcid 20mg tablet*) 20 Mg Tablet 20 MG ORAL TWICE A DAY, #60 TAB 0 Refills Prov: Marie Brito M.D. 10/18/19 Tramadol Hcl* (ULTRAM*) 50 Mg Tablet 50 MG ORAL Q6H PRN for For Pain, #20 TAB 0 Refills Prov: Marie Brito M.D. 10/18/19 Ondansetron* (ZOFRAN*) 4 Mg Tablet 4 MG ORAL Q6H PRN for Nausea & Vomiting, #14 TAB Prov: Marie Brito M.D. 10/18/19 Additional Instructions: The patient was provided with discharge instructions, notified to follow-up with a primary care doctor and or specialist in the next 24-48 hours, and to return to the ED if they have worsening of their symptoms. Please note that this report is being documented using [employer] technology. This can lead to erroneous entry secondary to incorrect interpretation by the dictating instrument. Marie Brito M.D. Oct 18, 2019 14:51
[2019-10-18] MEDS ORDERED: fentaNYL 100 mcg/2 mL IV ONE (15:00)
[2019-10-18 15:11] LABS: APPEARANCE,URINE CLOUDY; BILIRUBIN, URINE NEGATIVE (NEGATIVE); COLOR,URINE PALE YELLOW; GLUCOSE, URINE (UA) NEGATIVE (NEGATIVE); KETONES,URINE NEGATIVE (NEGATIVE); LEUKOCYTE ESTERASE ,URINE 1+ (NEGATIVE); NITRITE,URINE POSITIVE (NEGATIVE); PH,URINE 5 (4.5-8.0); PROTEIN,URINE NEGATIVE (NEGATIVE); UROBILINOGEN,URINE NORMAL MG/DL (0.0-1.0)
[2019-10-18 15:18] LABS: ANION GAP 5 mmol/L (5-15); BASOPHILS % (AUTO) 1.1 % (0.0-2.0); BLOOD UREA NITROGEN 17 mg/dL (7-18); CALCIUM 9.2 MG/DL (8.5-10.1); CARBON DIOXIDE 30 MMOL/L (21-32); CHLORIDE 104 MMOL/L (98-107); CREATININE 1.3 MG/DL (0.55-1.30); EOSINOPHILS % (AUTO) 1.9 % (0.0-3.0); HEMATOCRIT 37.4 % (37.0-47.0); HEMOGLOBIN 12.3 G/DL (12.0-16.0); MEAN CORPUSCULAR VOLUME 86 FL (80-99); MONOCYTES % (AUTO) 8.3 % (1.0-10.0); NEUTROPHILS % (AUTO) 58.6 % (45.0-75.0); PLATELET COUNT 273 K/UL (150-450); POTASSIUM 3.7 MMOL/L (3.5-5.1); RED BLOOD COUNT 4.37 M/UL (4.20-5.40); SODIUM 139 MMOL/L (136-145); WHITE BLOOD COUNT 5.4 K/UL (4.8-10.8)
[2019-10-18 15:22] LABS: ALANINE AMINOTRANSFERASE 13 U/L (12-78); ALBUMIN 3.6 G/DL (3.4-5.0); ALKALINE PHOSPHATASE 67 U/L (46-116); ASPARTATE AMINO TRANSFERASE 12 U/L (15-37); BILIRUBIN,TOTAL 0.3 MG/DL (0.2-1.0)
--- NOTE | 2019-10-18 17:50 | Diagnostic Imaging Report ---
EXAM: CT Abdomen and Pelvis With Intravenous Contrast CLINICAL HISTORY: ABD PAIN TECHNIQUE: Axial computed tomography images of the abdomen and pelvis with intravenous contrast. CTDI is 6 mGy and DLP is 336 mGy-cm. One or more of the following dose reduction techniques were used: automated exposure control, adjustment of the mA and/or kV according to patient size, use of iterative reconstruction technique. COMPARISON: 09/02/2019. FINDINGS: Lung bases: Unremarkable. ABDOMEN: Liver: Unremarkable. Gallbladder and bile ducts: Unremarkable. No calcified stones. Pancreas: Unremarkable. Spleen: Unremarkable. Adrenals: Unremarkable. Kidneys and ureters: Unremarkable. No hydronephrosis. Stomach and bowel: Mildly thickened bowel which may be underdistention versus enteritis. No bowel obstruction or diverticulitis. PELVIS: Appendix: Appendectomy. Bladder: Thickened bladder which may be chronic versus cystitis. Reproductive: Unremarkable as visualized. ABDOMEN and PELVIS: Intraperitoneal space: No free air. Bones/joints: No acute fracture. Soft tissues: Unremarkable. Vasculature: Unremarkable. Lymph nodes: Unremarkable. IMPRESSION: 1. Mildly thickened bowel which may be underdistention versus enteritis. No bowel obstruction or diverticulitis. 2. Thickened bladder which may be chronic versus cystitis.
[2019-10-18] MEDS ORDERED: FAMOTIDINE20 MG ORAL (17:52)
[2019-10-18] MEDS ORDERED: TRAMADOL HCL50 MG ORAL (17:52)
[2019-10-18] MEDS ORDERED: NITROFURANTOIN100 M2 ORAL (17:52)
[2019-10-18] MEDS ORDERED: ZOFRAN4 M3 ORAL (17:52)
[2019-10-18 18:05] VITALS: BP 151/92
--- NOTE | 2019-10-18 18:23 | Diagnostic Imaging Report ---
Indication: Reason For Exam: PAIN Technique: Single AP view of the chest. Comparison: Chest radiograph dated 09/02/2019; CT chest dated 09/02/2019 Findings: The cardiomediastinal silhouette is within normal limits. No airspace consolidation. Faint peripheral airspace opacities in the left midlung and base as well as right midlung are noted. No pneumothorax or pleural effusion. Osseous structures demonstrate no acute abnormality. IMPRESSION: Faint peripheral airspace opacities which likely corresponding to groundglass opacity seen on comparison CT chest and are nonspecific, but pneumonia should be excluded on clinical basis.
== END 2019-10-18 18:05 | disposition home or self-care (01) ==
LOC: EMR 14:53
DX: N39.0 Urinary tract infection, site not specified (principal); F14.10 Cocaine abuse, uncomplicated; F12.10 Cannabis abuse, uncomplicated; K52.9 Noninfective gastroenteritis and colitis, unspecified; I10 Essential (primary) hypertension; Z86.73 Personal history of transient ischemic attack (TIA), and cerebral infarction without residual deficits; Z88.0 Allergy status to penicillin
CPT/HCPCS: 36415; 71045; 74177; 80053; 80307; 81003; 83690; 83735; 84484; 85025; 85610; 85730; 86850; 86900; 86901; 87086; 87181; 93005; 96361; 96374; J3010; J7030; Q9967; Z7502; 99284

== ENCOUNTER 2019-12-07 21:34 | Emergency (ER) | payer OTHER ==
[~2019-12-07] VITALS: Ht 170.2 cm; Wt 74.8 kg
[~2019-12-07 21:34] MED LIST changes: +FAMOTIDINE20 MG ORAL; +ZOFRAN4 M3 ORAL
--- NOTE | 2019-12-07 21:35 | NUR ---
ED Nurse Note: pt HALLIE DENTON RA 26 from home c/o PENA, HTN, blurred vision, N/V onset today. pt admits to cocaine use at 1700. changed into gown; attached to monitor. all safety measures met.
[2019-12-07 21:40] VITALS: BP 190/131
--- NOTE | 2019-12-07 21:40 | NUR ---
ED Nurse Note: iv access established. blood and urine collected; sent down to lab.
[2019-12-07] MEDS ORDERED: cloNIDine 0.2mg Tab ORAL ONE (21:45)
--- NOTE | 2019-12-07 21:48 | NUR ---
ED Nurse Note: pt down to imaging via gurney with hospital laboratory technician
[2019-12-07 22:00] LABS: EOSINOPHILS % (AUTO) 2.6 % (0.0-3.0); HEMATOCRIT 41.7 % (37.0-47.0); HEMOGLOBIN 13.4 G/DL (12.0-16.0); LYMPHOCYTES % (AUTO) 25.7 % (20.0-45.0); MEAN CORPUSCULAR VOLUME 88 FL (80-99); MONOCYTES % (AUTO) 5.6 % (1.0-10.0); NEUTROPHILS % (AUTO) 65.1 % (45.0-75.0); PLATELET COUNT 266 K/UL (150-450); RED BLOOD COUNT 4.74 M/UL (4.20-5.40); RED CELL DISTRIBUTION WIDTH 14.8 % (11.6-14.8); WHITE BLOOD COUNT 8.8 K/UL (4.8-10.8)
--- NOTE | 2019-12-07 22:07 | NUR ---
ED Nurse Note: pt back from imaging via gurney with radiology transporter. reattached to monitor. ekg completed at bedside.
--- NOTE | 2019-12-07 22:10 | Diagnostic Imaging Report ---
EXAM: CT Head Without Intravenous Contrast CLINICAL HISTORY: H/A TECHNIQUE: Axial computed tomography images of the head/brain without intravenous contrast. CTDI is 53.40 mGy and DLP is 1045.50 mGy-cm. One or more of the following dose reduction techniques were used: automated exposure control, adjustment of the mA and/or kV according to patient size, use of iterative reconstruction technique. COMPARISON: 01/30/15 FINDINGS: Brain: Nonspecific white matter hypoattenuation likely secondary to chronic microvascular ischemia. Cerebrovascular ASVD. No hemorrhage. Ventricles: Unremarkable. No ventriculomegaly. Bones/joints: Unremarkable. No acute fracture. Soft tissues: Unremarkable. Sinuses: Unremarkable as visualized. No acute sinusitis. Mastoid air cells: Unremarkable as visualized. No mastoid effusion. IMPRESSION: 1. No acute intracranial abnormality. 2. Mild chronic senescent findings above.
[2019-12-07 22:11] LABS: ALANINE AMINOTRANSFERASE 24 U/L (12-78); ALBUMIN 3.9 G/DL (3.4-5.0); ALKALINE PHOSPHATASE 69 U/L (46-116); ASPARTATE AMINO TRANSFERASE 15 U/L (15-37); BILIRUBIN,TOTAL 0.3 MG/DL (0.2-1.0); BLOOD UREA NITROGEN 20 mg/dL (7-18); CALCIUM 9.6 MG/DL (8.5-10.1); CARBON DIOXIDE 30 MMOL/L (21-32); CHLORIDE 104 MMOL/L (98-107); CREATININE 1.2 MG/DL (0.55-1.30); SODIUM 139 MMOL/L (136-145)
--- NOTE | 2019-12-07 22:15 | Diagnostic Imaging Report ---
EXAM: XR Chest, 1 View CLINICAL HISTORY: H/A TECHNIQUE: Frontal view of the chest. COMPARISON: 10/18/2019 FINDINGS: Lungs: Low lung volumes with bronchovascular crowding. No consolidation, pleural effusion, or pneumothorax. Pleural space: See above. Heart: Unremarkable. No cardiomegaly. Mediastinum: Unremarkable. Bones/joints: No acute abnormality IMPRESSION: 1. Low lung volumes with bronchovascular crowding. 2. Otherwise no acute cardiopulmonary disease. 3. If there is continued concern, recommend frontal and lateral chest radiographs or CT.
[2019-12-07 22:18] VITALS: BP 205/109
[2019-12-07] MEDS ORDERED: Enalaprilat 2.5mg/2ml Inj IV ONE (22:30)
--- NOTE | 2019-12-07 22:39 | NUR ---
ED Nurse Note: unable to collect covid swab; patient refused
--- NOTE | 2019-12-07 22:54 | Emergency Room Report ---
History of Present Illness General Chief Complaint: Headache Source: Patient Present Illness HPI 49-year-old -[place] female with past medical history of polysubstance use disorder and hypertension brought in by ambulance from home for complaint of bifrontal headache after smoking cocaine. States that this is similar to previous headaches that she has experienced in the past after smoking. States that she has some mild blurred vision but denies any slurred speech, focal deficit, difficulty walking, blood thinners, nausea, vomiting, chest pain, shortness of breath, hemoptysis or other symptoms. Denies recent travel, syncope, confusion, neck pain, rash or other symptoms. Denies sudden thunderclap onset, worst of life, or associated trauma. The patient's symptoms were gradual onset, severity was moderate, duration since 1 day. Quality: Throbbing Past medical history: Hypertension Past surgical history: Appendectomy Smoking: ++ Alcohol use: Denies Drug use: ++ Cocaine Review of systems: CONST: No fevers or chills, No night sweats PULMONARY: No productive cough, No shortness of breath CARDIAC: No chest pain, No palpitations GI: No vomiting, No diarrhea , No melena_or_BRBPR : No dysuria, No hematuria, No discharge NEURO: No new_focal_weakness_or_numbness, No confusion, ++vision changes 14 point Review of Systems is otherwise negative except per HPI Physical Exam: GENERAL: Awake_alert_ nontoxic, no acute distress Spo2 98% on RA -normal EYES: Extraocular muscles are intact. Conjunctivae clear. Lids without swelling. No nystagmus. No ptosis. ENT: External nose and ear normal_in_appearance. Oropharynx clear. Head_atraumatic, Moist_oral_mucosa NECK: No JVD. No meningismus. No thyromegaly. Supple. Trachea midline RESP: Normal respiratory effort. Symmetric rise. No stridor. Clear_to_auscultation_No_rales_No_wheezes CARDIAC: Regular rate and regular rhytm. No_significant pedal edema. ABDOMEN: Soft. Nondistended. Nontender_No_rebound_or_guarding. MSK: Normal muscle tone, without rigidity. Extremities without asymmetric deformity or swelling. SKIN: Warm and dry. No visible cyanosis or pallor NEUROLOGIC: Alert, oriented x3. Motor_and_sensation_grossly_intact. No truncal ataxia. Gait_normal Normal [id number]. Normal rapid alternating movement. Psych: Normal mood and affect, normal judgment and insight - COORDINATION OF CARE Case was discussed with: Patient , Patient's Physician Any labs and imaging that were ordered were interpreted as part of the medical decision making: Medical Decision Making/Plan: Differential for the patients headache includes hypertensive urgency/emergency vs primary headache (migraine, tension, cluster), subarachnoid hemorrhage, intracranial mass / tumor, DOUBT meningitis, encephalitis, increased intracranial pressure, mastoiditis, acute sinusitis, dural venous thrombosis, temporal arteritis, acute angle closure glaucoma, among others. On initial vitals, patient is severely hypertensive. She is mildly confused but has no focal neurologic deficits. No nystagmus, ataxia or abnormal cerebellar signs noted. No signs of head trauma. EKG shows second-degree AV block Mobitz II with lateral T wave inversions on her EKG which are new. I did review previous EKG from 09/2019 which showed NSR with LVH. No Twi in the lateral leads. Pt does not endorse chest pain or anginal equivalent at this time. Given the patients presentation, with new type of headache and vomiting, desp ite normal neurologic exam, advanced imaging of the head with CT was felt to indicated and was obtained after weighing the risks and benefits of radiation to rule out cause of increased intracranial pressure such as tumor or mass which was negative. CT head is negative for ICH or mass. CXR shows possible vascular congestion. Troponin is negative x 1. UDS was positive for cocaine, likely exacerbating her chronic HTN. ED intervention included vasotec and clonidine with decrease of BP ~ 25%. Initial BP was 190/131 with repeat at 144mmHg Headache not sudden and severe, not worst headache of life, no family hx of SAH, neurologically intact without any persistent vomiting. Not consistent with subarachnoid hemorrhage, dural venous thrombosis, increased intracranial pressure, or significant tumor at this time. Patient without meningismus, mastoid / sinus tenderness, altered mental status or seizure. Doubt subdural abscess, meningitis, encephalitis, mastoiditis. No significant trauma mechanism, not anticoagulated. No evidence of subdural / epidural hematoma. No temporal tenderness, jaw claudication or vision loss. Eyes are reactive, with normal appearing anterior chambers. No evidence of temporal arteritis or acute angle closure glaucoma. Remains neuro intact, all sx resolved after vasotec but will admit 2/2 mobitz II on EKG and lateral Twi This patient appears to be a suitable candidate for transfer to telemetry floor at this time with orders from the admitting physician who is aware of the patient's evaluation, ancillary test findings, and current condition, and agrees with treatment and disposition. Allergies: Coded Allergies: PENICILLINS (Verified Allergy, Unknown, 01/01/14) COVID-19 Screening Contact w/high risk pt: No Recent Travel to affected area: No Experienced COVID-19 symptoms?: No COVID-19 Testing performed TRAVEL PROFESSIONAL: No Patient History Last Menstrual Period: unk Nursing Documentation-PMH Hx Hypertension: Yes History Of Psychiatric Problem: Yes Hx Cerebrovascular Accident: Yes - 2011 Physical Exam Vital Signs Date Time Temp Pulse Resp B/P (MAP) Pulse Ox O2 Delivery O2 Flow Rate FiO2 12/07/19 21:27 98.2 71 18 190/131 (150) 98 Room Air Sp02 EP Interpretation: reviewed, normal Procedures Critical Care Time Critical Care Time Critical Care Statement Organ systems at risk include: cardiac, neuro, circulatory Critical care performed for 45 minutes. Time is exclusive of separately billable procedures. Time includes: direct patient care, continuous monitoring and multiple patient reassessment, coordination of patient care, review of patient's medical records, medical consultation, family consultation regarding treatment decisions and documentation of patient care. Medical Decision Making Diagnostic Impression: Primary Impression: Hypertensive urgency, malignant Additional Impressions: T wave inversion in EKG Cocaine abuse Headache EKG Diagnostic Results PA Scribe Text 12-lead EKG (interpreted by me) Time: 2206 Indication: Rhythm analysis Tracing visualized and Interpreted by me. Rhythm: Sinus rhythm with second- degree AV block Rate: 60 bpm QTc: 396 Morphology: No_significant_ST_elevations_or_depressions, No STEMI Impression: Lateral T wave inversion in V4 through V6. No acute ST elevation MN Rhythm Strip Diag. Results Rhythm Strip Time: 22:54 EP Interpretation: yes Rate: 58 Rhythm: no PVC's, no ectopy Chest X-Ray Diagnostic Results Chest X-Ray Diagnostic Results : PA Scribe Text Chest X-Ray: Views: [ 1 ] view(s) Indication: Hypertension Findings: Normal heart size. Mediastinum normal. No infiltrate. Impression: Low lung volume. The X-ray(s) were independently viewed and interpreted contemporaneously Electronically signed by me, Barbara Bowles, DO Reevaluation Time: 22:54 Last Vital Signs Date Time Temp Pulse Resp B/P (MAP) Pulse Ox O2 Delivery O2 Flow Rate FiO2 12/07/19 22:31 205/109 12/07/19 22:18 98.2 84 18 98 Room Air Status: improved Disposition: ADMITTED INPATIENT - [facility] Dr Nguyen Admit Decision Time: 22:54 Condition: Stable Referrals: NOT CHOSEN IPA/,REFERRING (PCP) Barbara Bowles D.O. Dec 07, 2019 22:54
--- NOTE | 2019-12-07 23:00 | NUR ---
ED Nurse Note: patient refused covid swab x3. explained risk and benefits; patient still refused.
[2019-12-07 23:11] VITALS: BP 172/104
[2019-12-07 23:33] VITALS: BP 144/102
--- NOTE | 2019-12-08 00:05 | NUR ---
ED Nurse Note: report given to carlos eduardo reyna. [phone]. [id number] under the care of jamel. transportation eta 0100 with [facility].
--- NOTE | 2019-12-08 00:07 | NUR ---
ED Nurse Note: discussed plan of care with patient; aware of pending transfer. notified patient regarding covid swab refusal and pui placement in accepting facility; patient states understanding and still refuses covid swab.
[2019-12-08 01:07] VITALS: BP 135/82
--- NOTE | 2019-12-08 01:09 | NUR ---
ED Nurse Note: Patient sleeping in bed with no acute distress. arousable to name. vitals stable. bp stablized at 135/82. respirations even and unlabored. patient reports decrease of headache 5/10.
--- NOTE | 2019-12-08 01:56 | NUR ---
ED Nurse Note: report given to [facility]. patient left via gurney with all belongings and transfer packet. courtesy call to [facility] [place] given notifying departure of patient
[2019-12-08 01:57] VITALS: BP 135/82
== END 2019-12-08 01:58 | disposition other institution (70) ==
LOC: EDBD 21:34 → EMR 21:52
DX: I16.0 Hypertensive urgency (principal); I10 Essential (primary) hypertension; F14.10 Cocaine abuse, uncomplicated; R51 Headache; Z90.89 Acquired absence of other organs; I44.1 Atrioventricular block, second degree; Z88.0 Allergy status to penicillin; Z86.73 Personal history of transient ischemic attack (TIA), and cerebral infarction without residual deficits
CPT/HCPCS: 36415; 70450; 71045; 80053; 80307; 84484; 85025; 93005; 96374; Z7502; 99291

== ENCOUNTER 2020-03-02 18:32 | Emergency (ER) | payer OTHER ==
[~2020-03-02] VITALS: Ht 170.2 cm; Wt 68.0 kg
[2020-03-02 18:54] VITALS: BP 196/116
--- NOTE | 2020-03-02 18:54 | NUR ---
ED Nurse Note: Pt walked in to ED c/o HTN x3 days. BP at triage 196/116. Pt has been taking Norvasc and Amlodipine. Pt also c/o right flank pain. AAOx4, verbally responsive. No SOB, on room air. Pt placed on ekg monitor. ERPA at bedside.
[2020-03-02] MEDS ORDERED: Omnipaque-300 100ml vial INJ PRN (19:00)
[2020-03-02] MEDS ORDERED: Ketorolac 30mg Inj IV ONE (19:00)
--- NOTE | 2020-03-02 19:07 | NUR ---
HAND-OFF: Report given to lauren.
--- NOTE | 2020-03-02 19:10 | NUR ---
ED Nurse Note: pt states that she smokes cocaine multiple times a day every day and states that last use was at 11am today. PADMA notified
[2020-03-02 19:28] LABS: APPEARANCE,URINE CLEAR; BASOPHILS % (AUTO) 0.9 % (0.0-2.0); BILIRUBIN, URINE NEGATIVE (NEGATIVE); COLOR,URINE PALE YELLOW; GLUCOSE, URINE (UA) NEGATIVE (NEGATIVE); HEMOGLOBIN 14.3 G/DL (12.0-16.0); KETONES,URINE NEGATIVE (NEGATIVE); LEUKOCYTE ESTERASE ,URINE NEGATIVE (NEGATIVE); LYMPHOCYTES % (AUTO) 34.7 % (20.0-45.0); MEAN CORPUSCULAR VOLUME 84 FL (80-99); MONOCYTES % (AUTO) 8.5 % (1.0-10.0); NEUTROPHILS % (AUTO) 52.8 % (45.0-75.0); NITRITE,URINE NEGATIVE (NEGATIVE); PH,URINE 8 (4.5-8.0); PLATELET COUNT 296 K/UL (150-450); PROTEIN,URINE NEGATIVE (NEGATIVE); RED BLOOD COUNT 5.15 M/UL (4.20-5.40); RED CELL DISTRIBUTION WIDTH 14.7 % (11.6-14.8); UROBILINOGEN,URINE NORMAL MG/DL (0.0-1.0); WHITE BLOOD COUNT 5.7 K/UL (4.8-10.8)
--- NOTE | 2020-03-02 19:34 | NUR ---
ED Nurse Note: pt taken to CT in stable condition
[2020-03-02 19:47] LABS: CREATINE KINASE 115 U/L (26-308)
--- NOTE | 2020-03-02 19:47 | Diagnostic Imaging Report ---
EXAM: CT Head Without Intravenous Contrast CLINICAL HISTORY: HTN TECHNIQUE: Axial computed tomography images of the head/brain without intravenous contrast. CTDI is 53.4 mGy and DLP is 992.1 mGy-cm. One or more of the following dose reduction techniques were used: automated exposure control, adjustment of the mA and/or kV according to patient size, use of iterative reconstruction technique. COMPARISON: No relevant prior studies available. FINDINGS: Brain: No hemorrhage. Involutional changes with small vessel/white matter disease. Ventricles: No ventriculomegaly. Bones/joints: No acute fracture. Soft tissues: Unremarkable. Sinuses: No acute sinusitis. Mastoid air cells: No mastoid effusion. IMPRESSION: No acute intracranial process.
--- NOTE | 2020-03-02 19:49 | Emergency Room Report ---
History of Present Illness General Chief Complaint: Hypertension Source: Patient Present Illness HPI 49-year-old female with history of hypertension currently on amlodipine who does not recall whether she took her amlodipine earlier today or not here complaining of sudden onset of left-sided chest pain with radiation to the back also complains of right-sided flank pain reports a history of kidney stones. D enies any hematuria, diffuse abdominal pain, nausea vomiting at this time. Patient reports to my nurse after my examination that she used cocaine earlier today. Appears to be hypertensive upon arrival with blood pressure of 193/123. Also complains of headache and dizziness. Otherwise stable. Denies unilateral generalized weakness.Denies cough and congestion. Denies fever and chills. Reports that she is taking an antibiotic which she does not recall the name for UTI. Allergies: Coded Allergies: PENICILLINS (Verified Allergy, Unknown, 01/01/14) COVID-19 Screening Contact w/high risk pt: No Recent Travel to affected area: No Experienced COVID-19 symptoms?: No COVID-19 Testing performed [employer]CHITECT: Yes - 02/28/20 COVID-19 Screening: Negative COVID-19 COVID-19 Testing Source: clinic Patient History Past Medical History: see triage record Past Surgical History: none Pertinent Family History: none Now: No Immunizations: UTD Reviewed Nursing Documentation: PMH: Agreed; PSxH: Agreed Nursing Documentation-PMH Hx Hypertension: Yes Hx Cerebrovascular Accident: Yes - 2011 Review of Systems All Other Systems: negative except mentioned in HPI Physical Exam Vital Signs Date Time Temp Pulse Resp B/P (MAP) Pulse Ox O2 Delivery O2 Flow Rate FiO2 03/02/20 18:49 98.2 68 19 196/116 (142) 98 Room Air Sp02 EP Interpretation: abnormal - Elevated blood pre General Appearance: no apparent distress, alert, GCS 15, non-toxic Head: normocephalic, atraumatic Eyes: bilateral eye normal inspection, bilateral eye PERRL ENT: hearing grossly normal, normal pharynx, no angioedema, normal voice Neck: full range of motion, supple/symm/no masses Respiratory: chest non-tender, lungs clear, normal breath sounds, speaking full sentences Cardiovascular #1: regular rate, rhythm, no edema Cardiovascular #2: 2+ carotid (R), 2+ carotid (L), 2+ radial (R), 2+ radial (L), 2+ dorsalis pedis (R), 2+ dorsalis pedis (L) Gastrointestinal: soft, no mass, no organomegaly, no peritonitis, no guarding, no hernia, no pulsatile mass, no rebound Rectal: deferred Genitourinary: no CVA tenderness Musculoskeletal: back normal, no calf tenderness, pelvis stable Neurologic: alert, motor strength/tone normal, oriented x3, sensory intact, responsive, speech normal Psychiatric: judgement/insight normal, memory normal, mood/affect normal, no suicidal/homicidal ideation Lymphatic: no adenopathy Procedures Critical Care Time Critical Care Time Total critical care time; approximately 31 minutes. Due to a high probability of clinically significant, life threatening deterioration, the patient required my highest level of preparedness to intervene emergently and I personally spent this critical care time directly and personally managing the patient. This cri tical care time included obtaining a history; examining the patient; pulse oximetry; ordering and reviewing of studies; arranging urgent treatment with development of a management plan; evaluation of patient's response to treatment; frequent reassessment; and, discussions with other providers. This critical care time was performed to assess and manage the high probability of imminent, life-threatening deterioration that could result in multiorgan failure it was exclusive of separate billable procedures and treating other patients and teaching time. Please see MDM section and the rest of the note for further information on patient assessment and treatment. Patient was treated for hypertensive urgency with hydralazine and continuous monitoring Medical Decision Making PA Attestation All my diagnosis and treatment plans were reviewed ad discussed with my supervising physician Dr. Parish Diagnostic Impression: Primary Impression: Pneumonia due to COVID-19 virus Additional Impressions: Hypertensive urgency Cocaine abuse ER Course 49-year-old female with history of hypertension currently on amlodipine who does not recall whether she took her amlodipine earlier today or not here complaining of sudden onset of left-sided chest pain with radiation to the back also c omplains of right-sided flank pain reports a history of kidney stones. Denies any hematuria, diffuse abdominal pain, nausea vomiting at this time. Patient reports to my nurse after my examination that she used cocaine earlier today. Appears to be hypertensive upon arrival with blood pressure of 193/123. Also complains of headache and dizziness. Otherwise stable. Denies unilateral generalized weakness.Denies cough and congestion. Denies fever and chills. Reports that she is taking an antibiotic which she does not recall the name for UTI. Ddx considered but are not limited to: NM, Angina, COPD, GERD, hypertension urgency, hypertensive emergency, pyelonephritis Vital signs: are WNL, pt. is afebrile H&PE are most consistent with hypertensive urgency, ORDERS: Cardiac work-up, CT chest abdomen pelvis with contrast, CT head no contrast ED INTERVENTIONS: Hydralazine, Toradol, NS bolus At this time patient is stable to be discharged as hypertension is most likely secondary to withdrawal symptoms from cocaine also patient is to follow-up with [facility]. DISCHARGE: At this time pt. is stable for d/c to home. Will provide printed patient care instructions, and any necessary prescriptions. Care plan and follow up instructions have been discussed with the patient prior to discharge. EKG Diagnostic Results Rate: bradycardiac Rhythm: other - Slightly bradycardic ST Segments: no acute changes Other Impression No acute ST changes Chest X-Ray Diagnostic Results Chest X-Ray Diagnostic Results : Chest X-Ray Ordered: Yes # of Views/Limited/Complete: 1 View Indication: Chest Pain EP Interpretation: Yes PA Xray: Interpretation reviewed, by supervising MD Interpretation: no consolidation, no effusion, no pneumothorax, no acute cardiopulmonary disease Impression: No acute disease Electronically Signed by: Kim Rutledge PA-C CT/MRI/US Diagnostic Results CT/MRI/US Diagnostic Results #1: Imaging Test Ordered: CT head no contrast Impression COMPARISON: No relevant prior studies available. FINDINGS: Brain: No hemorrhage. Involutional changes with small vessel/white matter disease. Ventricles: No ventriculomegaly. Bones/joints: No acute fracture. Soft tissues: Unremarkable. Sinuses: No acute sinusitis. Mastoid air cells: No mastoid effusion. IMPRESSION: No acute intracranial process. CT/MRI/US Diagnostic Results #2: Imaging Test Ordered: CTA chest abdomen pelvis with contrast Impression EXAM: CT Abdomen and Pelvis With Intravenous Contrast CLINICAL HISTORY: PE TECHNIQUE: Axial computed tomography images of the abdomen and pelvis with intravenous contrast. CTDI is 39.8 mGy and DLP is 450 mGy-cm. One or more of the following dose reduction techniques were used: automated exposure control, adjustment of the mA and/or kV according to patient size, use of iterative reconstruction technique. COMPARISON: No relevant prior studies available. FINDINGS: ABDOMEN: Liver: Unremarkable. Gallbladder and bile ducts: No calcified stones. No ductal dilation. Pancreas: Unremarkable. Spleen: Unremarkable. Adrenals: Unremarkable. Kidneys and ureters: Unremarkable. No hydronephrosis. Stomach and bowel: No kierra mural thickening. Nonobstructive bowel gas pattern. PELVIS: Appendix: Appendix not identified. Bladder: Possibly mild thickening of the bladder. Reproductive: Unremarkable. ABDOMEN and PELVIS: Intraperitoneal space: Unremarkable. Bones/joints: No acute fracture. Soft tissues: Asymmetric soft tissue fullness or lesion in the right perineum, area measures approximately 3 cm Vasculature: No aortic aneurysm or dissection. Lymph nodes: No enlarged lymph nodes. IMPRESSION: No aortic aneurysm or dissection. Last Vital Signs Date Time Temp Pulse Resp B/P (MAP) Pulse Ox O2 Delivery O2 Flow Rate FiO2 03/02/20 19:14 196/116 03/02/20 18:54 98.2 68 19 98 Room Air Disposition: HOME, SELF-CARE Condition: Stable Scripts Amlodipine Besylate (Norvasc) 10 Mg Tablet 10 MG ORAL DAILY, #30 TAB Prov: Kim Patel 03/02/20 Prednisone* (PREDNISONE*) 20 Mg Tablet 40 MG ORAL DAILY for 5 Days, #10 TAB Prov: Kim Patel 03/02/20 Azithromycin* (ZITHROMAX*) 250 Mg Tablet 250 MG ORAL DAILY, #6 TAB 0 Refills Take two tables once daily for 1 day, then one tablet once daily for 4 days. Prov: Kim Patel 03/02/20 Referrals: [facility]ERR[facility] (PCP) Patient Instructions: Community-Acquired Pneumonia, Adult, Hypertension, Stimulant Use Disorder-Cocaine Additional Instructions: Take medication as directed, follow with your primary care provider, self isolate as you most likely have Covid due to the presentation and your CT scan, if worsening symptoms return to the emergency room. Avoid using cocaine. Take your blood pressure medication around the clock. Follow-up with your primary care provider and [facility] history of hypertension. Kim Patel Mar 02, 2020 19:49
[2020-03-02 19:57] LABS: CALCIUM 9.4 MG/DL (8.5-10.1); CREATININE 1.2 MG/DL (0.55-1.30); POTASSIUM 4.1 MMOL/L (3.5-5.1)
[2020-03-02 20:02] LABS: ALBUMIN 3.9 G/DL (3.4-5.0); ALBUMIN/GLOBULIN RATIO 0.8 (1.0-2.7); BILIRUBIN,TOTAL 0.4 MG/DL (0.2-1.0)
--- NOTE | 2020-03-02 20:15 | NUR ---
ED Nurse Note: all medications administered, pt tolerated well no ss of distress noted. will continue to monitor.
--- NOTE | 2020-03-02 20:20 | NUR ---
ED Nurse Note: pt taken to ct in stable condition
[2020-03-02] MEDS ORDERED: LORazepam Inj 2mg/ml 1ml IV ONE (21:00)
--- NOTE | 2020-03-02 21:05 | Diagnostic Imaging Report ---
EXAM: CT Chest With Intravenous Contrast CLINICAL HISTORY: PE TECHNIQUE: Axial computed tomography images of the chest with intravenous contrast. CTDI is 39.8 mGy and DLP is 450 mGy-cm. One or more of the following dose reduction techniques were used: automated exposure control, adjustment of the mA and/or kV according to patient size, use of iterative reconstruction technique. COMPARISON: No relevant prior studies available. FINDINGS: Lungs: No central pulmonary embolus. Mild patchy bilateral pulmonary infiltrates. Pleural space: Unremarkable. No pneumothorax. No effusion. Heart: No cardiomegaly. No pericardial effusion. Bones/joints: No acute fracture. Soft tissues: Unremarkable. Vasculature: No aortic aneurysm or dissection. Lymph nodes: No enlarged lymph nodes. IMPRESSION: 1. No aortic aneurysm or dissection. 2. No central pulmonary embolus. 3. Mild patchy bilateral pulmonary infiltrates. EXAM: CT Abdomen and Pelvis With Intravenous Contrast CLINICAL HISTORY: PE TECHNIQUE: Axial computed tomography images of the abdomen and pelvis with intravenous contrast. CTDI is 39.8 mGy and DLP is 450 mGy-cm. One or more of the following dose reduction techniques were used: automated exposure control, adjustment of the mA and/or kV according to patient size, use of iterative reconstruction technique. COMPARISON: No relevant prior studies available. FINDINGS: ABDOMEN: Liver: Unremarkable. Gallbladder and bile ducts: No calcified stones. No ductal dilation. Pancreas: Unremarkable. Spleen: Unremarkable. Adrenals: Unremarkable. Kidneys and ureters: Unremarkable. No hydronephrosis. Stomach and bowel: No kierra mural thickening. Nonobstructive bowel gas pattern. PELVIS: Appendix: Appendix not identified. Bladder: Possibly mild thickening of the bladder. Reproductive: Unremarkable. ABDOMEN and PELVIS: Intraperitoneal space: Unremarkable. Bones/joints: No acute fracture. Soft tissues: Asymmetric soft tissue fullness or lesion in the right perineum, area measures approximately 3 cm Vasculature: No aortic aneurysm or dissection. Lymph nodes: No enlarged lymph nodes. IMPRESSION: No aortic aneurysm or dissection.
--- NOTE | 2020-03-02 21:09 | NUR ---
ED Nurse Note: all medications administered, pt tolerated well no ss of distress noted. will continue to monitor.
[2020-03-02] MEDS ORDERED: Azithromycin 500 MG in NS 275 ML IV ONE (21:15)
[2020-03-02] MEDS ORDERED: cefTRIAXone 1 GM in NS 55 ML IVPB ONE (21:15)
[2020-03-02] MEDS ORDERED: ZITHROMAX250 MG ORAL (21:41)
[2020-03-02] MEDS ORDERED: NORVASC10 MG ORAL (21:41)
[2020-03-02] MEDS ORDERED: PREDNISONE20 MG ORAL (21:41)
[2020-03-02 23:05] VITALS: BP 148/81
--- NOTE | 2020-03-03 15:38 | Diagnostic Imaging Report ---
Indication: Chest pain Technique: One view of the chest Comparison: 12/07/2019 Findings: There are very questionable bilateral basilar streaky opacities. No focal airspace consolidation. Heart size is normal. Pleural spaces are clear Impression: Doubt acute process; however, questionable basilar streaky opacities are possible which if real could indicate early pneumonia. Correlate with clinical findings
== END 2020-03-02 23:05 | disposition home or self-care (01) ==
LOC: EMR 19:16
DX: U07.1 COVID-19 (principal); J12.89 Other viral pneumonia; I16.0 Hypertensive urgency; F14.10 Cocaine abuse, uncomplicated; R51.9 Headache, unspecified; R42 Dizziness and giddiness; I10 Essential (primary) hypertension; Z86.73 Personal history of transient ischemic attack (TIA), and cerebral infarction without residual deficits
CPT/HCPCS: 36415; 70450; 71045; 71275; 74175; 80053; 80307; 81003; 82550; 83880; 84484; 85025; 85379; 85610; 85730; 93005; 96361; 96365; 96367; 96375; 96376; J0360; J0456; J0696; J1885; J7030; J7050; Q9967; Z7502; 99291